=== PATIENT | male | born 1950 | race African-American/Black ===

== ENCOUNTER 2017-03-19 18:09 | Inpatient (IN) ==
[2017-03-19] MEDS ORDERED: ASPIRIN PO STA (18:12)
[2017-03-19 18:38] LABS: MANUAL DIFF NEEDED? NO
--- NOTE | 2017-03-19 18:44 | Diag Imaging Result Doc PS360 ---
CHEST-2 VIEWS - 03/19/2017 INDICATION: CP TECHNIQUE: COMPARISON: 02/04/2014 FINDINGS: Stable CABG changes. Stable cardiomegaly and pulmonary vascular congestion. No infiltrates or edema. No pneumothorax or pleural effusion. IMPRESSION: Cardiomegaly and pulmonary vascular congestion. Electronically signed by Tavo Baum 03/19/2017 6:42 PM
--- NOTE | 2017-03-19 18:48 | EKG Report ---
Test Performed on : 03/19/2017 6:19:52 PM Test Reason : CP Blood Pressure : / mmHG Vent. Rate : 078 BPM Atrial Rate : 078 BPM P-R Int : 280 ms QRS Dur : 112 ms QT Int : 398 ms P-R-T Axes : 087 -11 057 degrees QTc Int : 453 ms Sinus rhythm. with 1st degree AV block. with premature atrial complexes. with aberrant conduction. Minimal voltage criteria for LVH, may be normal variant Nonspecific ST abnormality Abnormal ECG When compared with ECG of 08-MAR-2009 14:22, premature ventricular complexes. are no longer present aberrant conduction. is now present DC interval has increased Unconfirmed Result
[2017-03-19 18:55] LABS: BASO% 0.5 % (0.0-0.8); EOS# 0.42 X1000 (0.0-0.7); EOS% 6.6 % (0.0-10.0); HEMATOCRIT 39.2 % (42.0-52.0); HEMOGLOBIN 13.2 g/dL (14.0-18.0); IMM GRAN# 0.01 X1000 (0.0-0.04); IMM GRAN% 0.2 % (0.0-0.5); LYMPH# 1.46 X1000 (1.2-3.4); MCH 31.9 PG (27-31); MCHC 33.7 g/dL (33-37); MCV 94.7 FL (81-99); MONO# 0.72 X1000 (0.11-0.59); MONO% 11.3 % (1.7-9.3); MPV 11.6 FL (7.4-10.4); NEUT% 58.4 % (42.2-75.2); PLT 146 X1000 (130-400); RBC 4.14 XMIL (4.7-6.1)
[2017-03-19 19:02] LABS: ALBUMIN 4.5 g/dL (3.5-5.0); CALCIUM 9.4 mg/dL (8.8-10.2); POTASSIUM 3.9 mmol/L (3.5-5.1); TOTAL BILIRUBIN 0.8 mg/dL (0.20-1.00); TOTAL PROTEIN 9.2 g/dL (6.3-8.3)
--- NOTE | 2017-03-19 19:24 | EKG Report ---
Test Performed on : 03/19/2017 6:53:24 PM Test Reason : CHEST PAIN Blood Pressure : / mmHG Vent. Rate : 069 BPM Atrial Rate : 051 BPM P-R Int : 000 ms QRS Dur : 116 ms QT Int : 428 ms P-R-T Axes : 000 -13 032 degrees QTc Int : 458 ms Accelerated Junctional rhythm. with frequent premature ventricular complexes. Left ventricular hypertrophy with QRS widening Nonspecific ST and T wave abnormality Abnormal ECG When compared with ECG of 19-MAR-2017 18:19, (Unconfirmed) Junctional rhythm. has replaced Sinus rhythm. Nonspecific T wave abnormality now evident in Inferior leads Unconfirmed Result
[2017-03-19 19:28] LABS: INR 1.1 (0.86-1.15); PROTIME 14.5 Seconds (12.1-15.5)
[2017-03-19 19:29] LABS: PTT PL 32.4 Seconds (22.6-43.9)
--- NOTE | 2017-03-19 21:02 | EKG Report ---
Test Performed on : 03/19/2017 8:59:27 PM Test Reason : CP Blood Pressure : / mmHG Vent. Rate : 061 BPM Atrial Rate : 061 BPM P-R Int : 214 ms QRS Dur : 108 ms QT Int : 428 ms P-R-T Axes : 023 -06 062 degrees QTc Int : 430 ms Sinus rhythm. with 1st degree AV block. Left ventricular hypertrophy with repolarization abnormality Abnormal ECG When compared with ECG of 19-MAR-2017 18:53, (Unconfirmed) Sinus rhythm. has replaced Junctional rhythm. Unconfirmed Result
--- NOTE | 2017-03-19 21:46 | PROVIDER DOCUMENTATION ---
This chart was entered by Franca Izaguirre Scribe, acting as scribe for Amador Ramírez PA. HPI-Chest Pain - General Chief Complaint: Chest Pain Stated Complaint: CHEST PAIN Time Seen by Provider: 03/19/17 19:07 Source: patient Allergies/Adverse Reactions: Patient Allergies Allergy/AdvReac Type Severity Reaction Status Date / Time No Known Allergies Allergy Verified 02/04/14 03:18 Home Medications: Home Medication List Medication Instructions Recorded Confirmed Last Taken Type ATORVAstatin [Lipitor] 40 mg PO DAILY 02/04/14 02/04/14 Unknown History Aspirin 81 mg PO DAILY 02/04/14 02/04/14 Unknown History Carvedilol 25 mg PO BID 02/04/14 02/04/14 Unknown History Clonidine [Catapres] 0.1 mg PO BID 02/04/14 02/04/14 Unknown History Prasugrel [Effient] 10 mg PO DAILY 02/04/14 02/04/14 Unknown History - History of Present Illness-CP Nature of Presenting Problem: Pt is a 67 year old male who came to the ED with a cc of dull chest pain starting last night. Pt reports also when he woke up this morning he still had chest pain. pt denies N/V, dizziness, and fever. Pt has a hx of open heart surgery and stents. Location: reports: central Chest Pain Radiation: reports: no radiation Quality of Pain: reports: dull Severity in ED: mild Onset/Duration: 24 hours ago Timing: still present Context/Activities at Onset: reports: none Modifying Factors: improves with: nothing Associated Symptoms: reports: denies symptoms Nitro Today/Relief: no nitro taken today Aspirin Treatment Today: no aspirin today Prior Chest Pain/Cardiac Workup: reports: heart attack Similar Symptoms Previously?: No Recently Seen Here or By Another Healthcare Provider: No Review of Systems - Adult - REVIEW OF SYSTEMS - ADULT Constitutional: denies: chills, fever Eyes: reports: no symptoms reported Ears, Nose, Mouth & Throat: reports: no symptoms reported Cardiovascular: reports: chest pain. denies: heart murmur, orthopnea Respiratory: denies: cough, shortness of breath Gastrointestinal: denies: diarrhea, nausea, vomiting Genitourinary: reports: no symptoms reported Musculoskeletal: reports: no symptoms reported Integumentary: reports: no symptoms reported Neurological: reports: no symptoms reported Psychiatric: reports: no symptoms reported Endocrine: reports: no symptoms reported Hematologic/Lymphatic: reports: no symptoms reported Allergic/Immunologic: reports: no symptoms reported All Other Systems: Reviewed and Negative Past History - Adult - PAST MEDICAL HISTORY-ADULT Review of Records: reports: Nursing Assessment Review, Medications Reviewed Major Childhood Illnesses: reports: denies history Cardiovascular: reports: CAD, hyperlipidemia, DE Respiratory: reports: COPD Gastrointestinal: reports: denies history Genitourinary: reports: denies history Musculoskeletal: reports: denies history Neurological: reports: denies history Psychiatric: reports: denies history Endocrine/Immune: reports: denies history - PRIOR SURGERIES/PROCEDURES Surgical/Procedure History: reports: cardiac stent, other (CABG) Physical Exam-General - PHYSICAL EXAM-ADULT Initial Vital Signs Reviewed: Yes - CONSTITUTIONAL General Appearance: appears well, alert, mild distress - EYES Eyes: PERRL/EOMI, pink conjunctivae. negative: sclera injected, scleral icterus - HEAD, EARS, NOSE, MOUTH & THROAT HENMT: normocephalic/atraumatic, moist mucous membranes, pharynx normal. negative: angioedema - NECK Neck: full range of motion, supple, normal inspection. negative: carotid bruit , trachial deviation - RESPIRATORY Respiratory: chest non-tender, lungs clear, normal breath sounds, no respiratory distress, no accessory muscle use. negative: crackles, rales, rhonchi, stridor, wheezing - CARDIOVASCULAR Cardiovascular: normal peripheral pulses, regular rate, rhythm, no gallop, no JVD, no murmur - GASTROINTESTINAL (ABDOMEN) Abdominal Exam: non tender, soft. negative: distended, guarding, rigid, rebound , tenderness - MUSCULOSKELETAL Back Exam: no CVA tenderness Extremity: non-tender, no calf tenderness, swelling (mild lower extremity swelling on the left ankle, non pitting edema, no pain or erythema). negative: deformity, erythema, inflammation, joint effusion Peripheral Pulses: radial (R): 2+, radial (L): 2+, dorsalis-pedis (R): 2+, dorsalis-pedis (L): 2+ - SKIN Integumentary: normal color, warm/dry - NEUROLOGIC Neurologic: senior foreman II-XII nml as tested, grossly normal - PSYCHIATRIC Psych/Mental Status: normal mood/affect, normal thought content, normal thought process Progress - PLAN OF CARE/RESULTS Progress/Plan/Lab Results: Laboratory Results - last 24 hr 03/19/17 03/19/17 03/19/17 18:20 18:20 18:20 WBC RBC Hgb Hct MCV MCH MCHC RDW Std Deviation Plt Count MPV Immature Gran % (Auto) Neut % (Auto) Lymph % (Auto) [place] % (Auto) Eos % (Auto) Baso % (Auto) Immature Gran # (Auto) Neut # (Auto) Lymph # (Auto) [place] # (Auto) Eos # (Auto) Baso # (Auto) PT INR APTT (Factor Assay) D-Dimer Sodium 135 L Potassium 3.9 Chloride 99 Carbon Dioxide 25 Anion Gap 11 BUN 16 Creatinine 1.4 H Estimated GFR/1.73 m2 51 BUN/Creatinine Ratio 11 Glucose 179 H Calculated Osmolality 276 Calcium 9.4 Magnesium 2.0 Total Bilirubin 0.80 AST 38 H ALT 29 Alkaline Phosphatase 129 H Creatine Kinase 195 Troponin T < 0.010 [id number] Pept 982 H Total Protein 9.2 H Albumin 4.5 Globulin 5.0 Albumin/Globulin Ratio 1.0 03/19/17 03/19/17 03/19/17 18:20 19:00 21:23 WBC 6.35 RBC 4.14 L Hgb 13.2 L Hct 39.2 L MCV 94.7 MCH 31.9 H MCHC 33.7 RDW Std Deviation 12.2 Plt Count 146 MPV 11.6 H Immature Gran % (Auto) 0.2 Neut % (Auto) 58.4 Lymph % (Auto) 23.0 Berg[place] % (Auto) 11.3 H Eos % (Auto) 6.6 Baso % (Auto) 0.5 Immature Gran # (Auto) 0.01 Neut # (Auto) 3.71 Lymph # (Auto) 1.46 Berg[place] # (Auto) 0.72 H Eos # (Auto) 0.42 Baso # (Auto) 0.03 PT 14.5 INR 1.10 APTT (Factor Assay) 32.4 D-Dimer 0.86 H Sodium Potassium Chloride Carbon Dioxide Anion Gap BUN Creatinine Estimated GFR/1.73 m2 BUN/Creatinine Ratio Glucose Calculated Osmolality Calcium Magnesium Total Bilirubin AST ALT Alkaline Phosphatase Creatine Kinase Troponin T 0.025 D [id number]-Atvyefusfwg Pept Total Protein Albumin Globulin Albumin/Globulin Ratio Orders Category Date Time Status Admit - [facility] Routine AdmDCTranf 03/19/17 22:24 Ordered Cardiac Monitoring DIRECTED Care 03/19/17 18:13 Completed [facility] Loc NOW Care 03/19/17 18:13 Completed CHEST-2 VIEWS [RAD] Stat Exams 03/19/17 18:13 Completed CBC WITH ELECTRONIC DIFF [HEME] Stat Lab 03/19/17 18:20 Completed CK PROFILE [SP CHEM] Stat Lab 03/19/17 18:20 Completed COMPREHENSIVE METABOLIC PANEL [CHEM] Stat Lab 03/19/17 18:20 Completed D-DIMER PL [COAG] Stat Lab 03/19/17 19:00 Completed MAGNESIUM [CHEM] Stat Lab 03/19/17 18:20 Completed PRO B-NATRIURETIC PEPTIDE Stat Lab 03/19/17 18:20 Completed [address]IME WITH INR PL [COAG] Stat Lab 03/19/17 19:[address] [COAG] Stat Lab 03/19/17 19:00 Completed TROPONIN T Stat Lab 03/19/17 18:20 Completed TROPONIN T Stat Lab 03/19/17 21:23 Completed Aspirin Med 03/19/17 18:12 Discontinued 325 mg PO STAT STA EKG [EKG] Stat Ther 03/19/17 18:13 Draft EKG [EKG] Stat Ther 03/19/17 18:45 Draft EKG [EKG] Stat Ther 03/19/17 20:52 Draft Transfer/Admit Order [TRANSFER] Routine Transfer 03/19/17 22:24 Completed Result Diagrams: 03/20/17 06:53 03/20/17 06:53 - REASSESSMENT Reassessment #1 Time Reassessed: 20:53 (Discussed with Dr. Eid, recommends admission for DE r/o and VQ scan in the am. ) Reassessment #2 Time Reassessed: 00:45 (No telemetry beds available at [facility]. Discussed admission at for pt for DE r/o and V/Q scan in the am. Dr. Stout accepting. ) - EKG 1 Time of EKG reading by physician:: 20:59 EKG Read and Signed by:: Venu Eid EKG Interpretation (*Must complete 3 of following elements*): Abnormal Rate: 61 Rhythm: sinus rhythm w 1st degree AV block - CONSULTS/PCP/HOSPITALIST Notification #1 *Consult/PCP/Hospitalist*: Dr. Trejo, Hospitalist Time Discussed: 21:45 (Discussed admission for DE r/o and V/Q scan in the am due to elevated D dimer and creatinine of 1.4. Per christelle Lopez for admit. ) Consult Disposition: Admit #2 Consult: Dr. Stout Hospitalist at Time Discussed: 00:46 (Admit to , no telemetry beds here at [facility]) Consult Disposition: Admit Departure - Departure Date of Disposition Decision: 03/19/17 Time of Disposition Decision: 21:45 DIAGNOSIS: Elevated d-dimer, History of DE (myocardial infarction) Chest pain Qualifiers: Chest pain type: unspecified Qualified Code(s): R07.9 - Chest pain, unspecified Disposition: ADMITTED INPATIENT 09 Certified Medical Emergency: Emergent Condition: Stable - Critical Care Note This patient required my direct & personal management of CC.: No Attestation - Physician/ ALBER Attestation Patient care was provided by Advanced Practice Provider:: Yes Advanced Practice Provider:: Amador Ramírez Advanced Practice Provider documentation review:: The Mid-level provider documentation, treatment plan and medical decision making was reviewed by the physician who agrees with all treatment and medical decision making by the MLP. This chart was documented by the indicated scribe, (Franca Izaguirre Scribe) and accurately reflects the services I performed and decisions made by me, Amador Ramírez PA, as attested by the provider's signature.
[2017-03-20 07:08] LABS: HEMATOCRIT 37.5 % (42.0-52.0); HEMOGLOBIN 12.8 g/dL (14.0-18.0); MCH 31.9 PG (27-31); MCHC 34.1 g/dL (33-37); MCV 93.5 FL (81-99); MPV 11.3 FL (7.4-10.4); RBC 4.01 XMIL (4.7-6.1)
[2017-03-20 07:31] LABS: AGAP 12; ALBUMIN 4.1 g/dL (3.5-5.0); ALKALINE PHOSPHATASE 119 U/L (32-122); BUN 12 mg/dL (8-22); CALCIUM 9.6 mg/dL (8.8-10.2); CHLORIDE 101 mmol/L (98-107); COSMO 278; GOT 38 U/L (10-34); GPT 37 U/L (10-44); MAGNESIUM 1.9 mg/dL (1.5-2.7); POTASSIUM 3.4 mmol/L (3.5-5.1); SODIUM 138 mmol/L (136-145); TCO2 25 mmol/L (25-35); TOTAL PROTEIN 8.4 g/dL (6.3-8.3)
[2017-03-20] MEDS ORDERED: APRESOLINE IV ONE (11:44)
[2017-03-20] MEDS: ASPIRIN PO SCH (13:19)
[2017-03-20] MEDS: APRESOLINE PO SCH ×2 (13:19→21:06)
[2017-03-20] MEDS: NORVASC PO SCH (13:19)
--- NOTE | 2017-03-20 13:31 | Extremity Venous Study ---
EXAM: Venous U/S Bilateral Legs HISTORY: d dimer TECHNIQUE: Compression venous ultrasound of the lower extremities with color Doppler COMMENT: The deep veins of the lower extremity are compressible and there is normal color Doppler flow with augmentation. No abnormal fluid collections are demonstrated. There is no evidence of superficial venous thrombosis. IMPRESSION: Normal study. Electronically signed by Chintan Jacques 03/20/2017 1:29 PM
--- NOTE | 2017-03-20 13:50 | EKG Report ---
Test Performed on : 03/20/2017 12:19:11 PM Test Reason : elevated troponin Blood Pressure : / mmHG Vent. Rate : 059 BPM Atrial Rate : 059 BPM P-R Int : 280 ms QRS Dur : 110 ms QT Int : 474 ms P-R-T Axes : 000 -18 050 degrees QTc Int : 469 ms Sinus bradycardia. with 1st degree AV block. with frequent premature ventricular complexes. and ivan ature atrial complexes. Minimal voltage criteria for LVH, may be normal variant Nonspecific ST abnormality Abnormal ECG When compared with ECG of 19-MAR-2017 20:59, (Unconfirmed) premature ventricular complexes. are now present premature atrial complexes. are now present Confirmed by Juventino dAam MD ([id number]) on 03/27/2017 10:26:48 PM
--- NOTE | 2017-03-20 15:34 | HISTORY AND PHYSICAL ---
CHIEF COMPLAINT: Chest pain. HISTORY OF PRESENT ILLNESS: This is a 67-year-old male who presented to the emergency room complaining of dull chest wall pain that began through the night. He rates it as a 2 to 3/10. He has identified no exacerbating or relieving factors. He does have a history of coronary artery bypass graft and subsequent PCI, but this is not consistent with the pain he felt with these episodes in the past. He is noted to have troponins of less than 0.010, 0.025 and at 7 o'clock this morning, a troponin of 0.128. In the emergency room, his EKGs revealed sinus rhythm with a first-degree block with a rate of 68. PAST MEDICAL HISTORY: 1. Coronary artery disease, status post coronary artery bypass graft. 2. Hypertension. 3. Chronic kidney disease. 4. Hyperlipidemia. PAST SURGICAL HISTORY: Cardiac bypass grafts. SOCIAL HISTORY: He denies alcohol, tobacco, or illicit drug use. ALLERGIES: No known drug allergies. HOME MEDICATIONS: A list will be obtained. REVIEW OF SYSTEMS: A 14 point review of systems is discussed with patient with pertinent positives stated in the HPI. He denies syncope, dizziness, palpitations, nausea, vomiting, diarrhea, constipation, black or bloody vomitus, black or bloody stools, any shortness of breath, cough, PND, orthopnea. PHYSICAL EXAMINATION: GENERAL: This is a 67-year-old male who is sitting in the bed, in no distress. VITAL SIGNS: Blood pressure is 131/67 with a heart rate of 52, respirations are 18, temperature is 98.1 degrees oral with room air saturations 100%. HEENT: Head is normocephalic, atraumatic. Pupils equal, round, react to light. EOMs are intact. Sclerae are nonicteric. Mucous membranes are moist. NECK: Supple with trachea midline. CARDIOVASCULAR: Regular rate and rhythm. S1 and S2 appreciated. PULMONARY: Breath sounds are clear with no increased work of breathing noted. GASTROINTESTINAL: Abdomen is soft, nontender, nondistended with bowel sounds in all 4 quadrants. BACK: No CVAT. No spine tenderness. MUSCULOSKELETAL: Good range of motion to joints. NEUROLOGIC: He is alert and oriented x3 with cranial nerves 2-12 grossly intact. EXTREMITIES: No clubbing, cyanosis, or edema. Calves are nontender. Pulses are palpable x4. DIAGNOSTICS: WBC is 7.4 with a hemoglobin 12.8, hematocrit 37.5, platelets of 159,000. D-dimer is 0.86, sodium is 135 potassium 3.9, BUN 16, creatinine 1.4 with a glucose of 179. Troponin less than 0.010, 0.025, 0.128. Chest x-ray revealed cardiomegaly and pulmonary vascular congestion. No infiltrates or edema, no pneumothorax or pleural effusion. ASSESSMENT: 1. Chest pain. 2. Hypertension. 3. Elevated troponin. 4. History of coronary artery disease, status post coronary artery bypass graft. 5. History of chronic kidney disease. It looks like with a baseline creatinine of 1.4-1.5. PLAN: He will be admitted to the hospital, placed on telemetry. We will repeat a troponin. Cardiology has been consulted. Due to his renal status, we will obtain a VQ lung scan as well as a bilateral lower extremity Doppler due to his elevated D-dimer. We will identify his home medications and continue as appropriate. Further treatments pending hospital course. Dictated by JASON Ayala for Kamari Trejo MD cc: JASON Ayala MD
--- NOTE | 2017-03-20 16:30 | Diag Imaging Result Doc PS360 ---
EXAM: LUNG SCAN / VQ - 03/20/2017 HISTORY: CP, elevated ddimer TECHNIQUE: Ventilation images performed using 35.7 mCi technetium 99m DTPA aerosol inhaled. Perfusion images performed using 5.9 mCi technetium 99m MAA administered intravenously. Ventilation perfusion images are obtained in multiple projections over the lungs. COMPARISON: None. FINDINGS: The ventilation images are mildly heterogeneous. The perfusion images are relatively homogeneous. There is no segmental perfusion defect identified. There is no ventilation/perfusion mismatch (area which is ventilated but not perfused) identified. IMPRESSION: Low probability for pulmonary embolism. Electronically signed by Golden Unger 03/20/2017 4:27 PM
[2017-03-20] MEDS ORDERED: COREG PO SCH (21:00)
[2017-03-20] MEDS: LIPITOR PO SCH (21:06)
[2017-03-20] MEDS: CATAPRES PO SCH (21:06)
--- NOTE | 2017-03-20 21:38 | CONSULTATION ---
DATE OF CONSULTATION: 03/20/2017 IMPRESSION: 1. Episode of chest discomfort burning in character last approximately 30 minutes. Consider myocardial ischemia although symptoms are not like what he experienced before with his previous heart attack. Consider also possible gastroesophageal reflux. Serial cardiac enzymes benign. 2. Atherosclerotic coronary disease with history of previous coronary bypass grafting. 3. Hypertension. 4. Chronic kidney disease. 5. Hyperlipidemia. RECOMMENDATIONS: 1. Agree with plan to pursue stress myocardial perfusion study. If study is positive will consider for coronary angiography. 2. If study negative would continue medical management of coronary disease and also treat for possible upper GI source of symptoms such as gastroesophageal reflux. HISTORY: This 67-year-old male with past history of previous coronary bypass grafting more than 10 years ago, hypertension, hyperlipidemia and chronic kidney disease was admitted to emergency room yesterday morning after an episode of chest discomfort. He relates that when he awoke he was feeling burning discomfort in the left chest wall region. There was no other associated symptoms. Discomfort lasted approximately 30 minutes. He took an aspirin and discomfort seemed to fade away. He has not had recurrence. Discomfort is not like what he experienced with his previous myocardial infarction. The chest discomfort associated with his myocardial infarction was characterized as a chest tightness with left arm radiation. He has not had any recurrence of such discomfort. He is admittedly not very active. He does have some mild exertional shortness of breath which is chronic. There has been no orthopnea. He is not aware of any problems with gastroesophageal reflux. PAST MEDICAL HISTORY: 1. Atherosclerotic coronary disease and previous coronary bypass grafting. 2. Hypertension. 3. Chronic kidney disease. 4. Hyperlipidemia. PAST SURGICAL HISTORY: Includes coronary bypass grafting. ALLERGIES: No known drug allergies. MEDICATIONS: As listed. SOCIAL HISTORY: He does not smoke. He does use smokeless tobacco. He does not use alcohol. FAMILY HISTORY: Positive for coronary disease. REVIEW OF SYSTEMS: Pulmonary: Negative beyond history of present illness. Gastrointestinal: Negative beyond history of present illness. Constitutional: Negative beyond history of present illness. Remainder of review of systems negative beyond history present illness with 14 total systems reviewed. PHYSICAL EXAM: General: This is an overweight older -[place] male in no distress. Vital signs: Blood pressure 131/67, heart rate 52 and regular. HEENT: Extraocular movements appear intact. Mucous membranes are moist. Neck: Supple without jugular venous distention. There are no carotid bruits. Chest: Clear to auscultation. Cardiac Exam: Reveals a regular rate and rhythm without appreciable murmur or gallop. Abdomen: Soft, nontender. Bowel sounds are normal. Extremities: Without edema. Neurologic Exam: Reveals him to be alert, fully oriented. Speech is fluent. Moves all 4 extremities equally well. Skin: Warm and dry. Psychiatric: Reveals mood to be appropriate. DIAGNOSTIC DATA: ECG demonstrates sinus rhythm with 1st degree AV block and moderate ventricular ectopy. Voltage criteria for left hypertrophy demonstrated. Nonspecific ST abnormality demonstrated. LABORATORY DATA: Remarkable for a initial troponin T less than 0.01. Followup troponin T 0.025. Third troponin T 0.094. CPK values consistently normal. cc: Jairon Quijano MD
--- NOTE | 2017-03-21 00:55 | EKG Report ---
Test Performed on : 03/21/2017 00:48:53 AM Test Reason : Abnormal telemetry reading - 10 beat run / V-tach Blood Pressure : / mmHG Vent. Rate : 055 BPM Atrial Rate : 055 BPM P-R Int : 254 ms QRS Dur : 122 ms QT Int : 478 ms P-R-T Axes : 016 -28 067 degrees QTc Int : 457 ms Sinus bradycardia. with 1st degree AV block. Left ventricular hypertrophy with QRS widening Abnormal ECG When compared with ECG of 20-MAR-2017 12:19, (Unconfirmed) premature ventricular complexes. are no longer present premature atrial complexes. are no longer present Confirmed by Juventino Adam MD ([id number]) on 03/27/2017 10:27:03 PM
[2017-03-21] MEDS: APRESOLINE PO SCH ×3 (05:47→22:28)
[2017-03-21 07:14] LABS: HEMATOCRIT 38.4 % (42.0-52.0); MCH 31.6 PG (27-31); MCHC 33.9 g/dL (33-37); MCV 93.2 FL (81-99); MPV 11.2 FL (7.4-10.4); RBC 4.12 XMIL (4.7-6.1)
[2017-03-21 07:42] LABS: AGAP 10; ALBUMIN 4.1 g/dL (3.5-5.0); ALKALINE PHOSPHATASE 115 U/L (32-122); BUN 15 mg/dL (8-22); CALCIUM 9.3 mg/dL (8.8-10.2); CHLORIDE 101 mmol/L (98-107); COSMO 274; GOT 36 U/L (10-34); GPT 30 U/L (10-44); MAGNESIUM 1.9 mg/dL (1.5-2.7); POTASSIUM 3.3 mmol/L (3.5-5.1); SODIUM 135 mmol/L (136-145); TCO2 24 mmol/L (25-35); TOTAL PROTEIN 8.4 g/dL (6.3-8.3)
[2017-03-21] MEDS: NORVASC PO SCH ×2 (08:22→09:06)
[2017-03-21] MEDS: CATAPRES PO SCH ×3 (08:22→20:54)
[2017-03-21] MEDS: ASPIRIN PO SCH ×2 (08:22→12:01)
[2017-03-21 08:33] LABS: CK-MB 5.03 ng/mL (0.0-5.0)
--- NOTE | 2017-03-21 12:04 | PROGRESS NOTE ---
DATE: 03/21/2017 SUBJECTIVE: Patient without any new complaints. States that his chest wall pain has resolved. He is feeling better. OBJECTIVE: Vital Signs: Pulse 98 degrees, pulse 61, respiratory rate 18, blood pressure 147/79, saturation 100% on room air. General: Patient is awake and alert, sitting on the side of the bed. He is in no respiratory distress. Pleasant to talk with. Neck: Supple. Cardiovascular: Regular rate. Chest: Clear. Abdomen: Soft. Positive bowel sounds. Extremities: Moves all extremities. Positive trace edema, bilateral lower extremities. Neurologic: No focal changes. Skin: Warm and dry. No rashes. LABORATORY: Troponin is actually trending down. His troponin had gone from 0.25 up to 0.128. It currently has trended back down to 0.091. ASSESSMENT: 1. Hypokalemia. Will replace. 2. Known coronary artery disease. 3. Elevated D-dimer. The patient's V/Q scan was negative. Ultrasound of his lower extremities was also negative. PLAN: We will continue to follow patient's hypertension. Given his known history of coronary artery disease and his elevated troponin, cardiology feels as though he needs to have a nuclear scan prior to discharge. This certainly is reasonable. Unfortunately, he had a V/Q scan yesterday evening, which prevents an adequate nuclear scan. Therefore, he will need to remain in the hospital overnight and hopefully can have a nuclear scan in the a.m. and, if normal, will be able to discharge home. We will continue cardiac diet today and place him n.p.o. after midnight. cc: Kamari Trejo MD
[2017-03-21] MEDS: LIPITOR PO SCH (20:54)
[2017-03-22] MEDS: APRESOLINE PO SCH ×2 (06:20→13:08)
--- NOTE | 2017-03-22 08:39 | EKG Report ---
Test Performed on : 03/22/2017 08:16:32 AM Test Reason : cp, ELEVATED TROPONIN Blood Pressure : / mmHG Vent. Rate : 061 BPM Atrial Rate : 061 BPM P-R Int : 238 ms QRS Dur : 116 ms QT Int : 458 ms P-R-T Axes : 069 -12 054 degrees QTc Int : 461 ms Sinus rhythm. with 1st degree AV block. Incomplete left bundle branch block Borderline ECG When compared with ECG of 21-MAR-2017 00:48, (Unconfirmed) No significant change was found Confirmed by Juventino Adam MD ([id number]) on 03/27/2017 10:29:56 PM
[2017-03-22] MEDS: NORVASC PO SCH (11:37)
[2017-03-22] MEDS: ASPIRIN PO SCH ×2 (11:37)
[2017-03-22] MEDS: CATAPRES PO SCH (11:38)
--- NOTE | 2017-03-22 15:46 | Diag Imaging Result Document ---
PROCEDURE NAME: MYOCARDIAL PERF SCAN, STR/REST - 03/22/2017 Please see detailed stress report by Dr. Adam. Patient exercised on Jerome protocol. Had a modified Jerome protocol. Following stress test, Cardiolite was injected. 15.6 mCi of Cardiolite was injected for the rest phase; 45 mCi of Cardiolite was injected for the stress phase. Gated SPECT images were obtained in standard views. Images revealed mild left ventricular dilatation. There was severe grade large size fixed defect in the inferior wall diagnostic of infarct or scar. In addition, there was fixed defect in the inferolateral wall diagnostic of infarct or scar. There was fixed defect in the inferoapical portion. Left ventricular ejection fraction 34%. There is inferior wall akinesis. There is no evidence of ischemia. CONCLUSIONS: 1. No evidence of ischemia. 2. Left ventricle was dilated. There was large size, severe grade, fixed defect in the inferior wall, inferolateral and inferoapical wall diagnostic of infarct or scar. 3. Left ventricular ejection fraction 34%. There was inferior wall hypokinesis. cc: MD Monique Parra CRNP
[2017-03-23] MEDS ORDERED: IMDUR PO SCH (09:00)
[2017-03-23 09:18] VITALS: BP 157/78
--- NOTE | 2017-03-23 13:06 | DISCHARGE SUMMARY ---
ADMISSION DATE: 03/20/2017 DISCHARGE DATE: 03/22/2017 DIAGNOSES: 1. Known coronary artery disease. 2. Elevated D-dimer with a negative V/Q scan and lower extremity Doppler negative. 3. Hypokalemia. Resolved. CONSULTS: Dr. Jairon Quijano, Cardiology. DIAGNOSTICS: 1. 03/20/2017 V/Q lung scan revealed low probability of pulmonary embolus. 2. Bilateral lower extremity Doppler revealed negative for deep venous thrombosis. 3. Myocardial perfusion scan showed no evidence of ischemia. Left ventricle was dilated. There was a large-sized, severe grade, fixed defect in the inferior wall, inferolateral, and inferior apical wall, diagnostic of an infarct or scar. Left ventricle ejection fraction was 34% with inferior wall hypokinesis. HOSPITAL COURSE: Mr. Prabhakar presented to the emergency room having chest pain that was a burning- type pain that lasted about 30 minutes. This was not consistent with his prior cardiac pain. Serial cardiac enzymes were elevated. He was evaluated by Cardiology and a myocardial perfusion scan was performed, which revealed an old defect. He has had no further chest pain. During the hospitalization, we did trend his electrolytes and replete as appropriate. We did continue his home medications. PHYSICAL EXAMINATION: Cardiovascular: Regular rate and rhythm. S1 and S2 appreciated. Pulmonary: Breath sounds are clear, with no increased work of breathing noted. Gastrointestinal: Abdomen is soft, nontender, nondistended, with bowel sounds in all 4 quadrants. Extremities: No clubbing, cyanosis, or edema. Calves nontender. Pulses are palpable x4. Neurologic: He is alert and oriented x3. DISCHARGE MEDICATIONS: Imdur 60 mg daily. Norvasc 10 mg daily. Hydralazine 50 mg t.i.d. Carvedilol 25 mg b.i.d. Aspirin 81 mg at 8 and 12. Lipitor 40 mg at bedtime. Clonidine 0.1 b.i.d. FOLLOWUP: 1. He is to follow up with his primary care provider in 1-2 weeks or sooner if needed. 2. Follow up with Dr. 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 DISPOSITION: He is being discharged home in stable condition with family members. TIME SPENT: This is a greater than 30-minute discharge. Dictated by JASON Ayala for Kamari Trejo MD cc: JASON Ayala MD
== END 2017-03-22 19:40 | disposition home or self-care (01) ==
LOC: P.ED 18:09 → SUATTDRO 03-20 02:18 → P.MEDSURG 03-20 02:18
PROVIDERS: ATTEND Family Medicine

== ENCOUNTER 2018-09-03 22:57 | Inpatient (IN) ==
--- NOTE | 2018-09-04 00:09 | Diag Imaging Result Doc PS360 ---
EXAM: CHEST-2 VIEWS HISTORY: cough TECHNIQUE: Chest two COMPARISON: 08/27/2018 FINDINGS: The lungs are well expanded. The heart is mildly enlarged. Sternal wires present. It The vessels are not distended. There are no infiltrates. No pleural effusions. IMPRESSION: 1.Cardiomegaly 2.No pneumonia Electronically signed by Angel Encarnacion 09/04/2018 12:07 AM
[2018-09-04 00:22] LABS: ALBUMIN 3.7 g/dL (3.5-5.0); CREATININE 2.2 mg/dL (0.7-1.2); POTASSIUM 3.4 mmol/L (3.5-5.1); TOTAL BILIRUBIN 1.5 mg/dL (0.20-1.00); TOTAL PROTEIN 7.7 g/dL (6.3-8.3)
[2018-09-04 00:27] LABS: BASO# 0.03 X1000 (0.0-0.2); BASO% 0.5 % (0.0-0.8); EOS# 0.29 X1000 (0.0-0.7); EOS% 4.8 % (0.0-10.0); HEMATOCRIT 31.7 % (42.0-52.0); LYMPH# 0.83 X1000 (1.2-3.4); LYMPH% 13.6 % (20.5-51.1); MCH 31.9 PG (27-31); MCHC 31.5 g/dL (33-37); MCV 101.3 FL (81-99); MONO# 0.61 X1000 (0.11-0.59); MPV 11.1 FL (7.4-10.4); NEUT# 4.34 X1000 (1.4-6.5); NEUT% 71.1 % (42.2-75.2); PLT 92 X1000 (130-400); RBC 3.13 XMIL (4.7-6.1)
[2018-09-04 01:04] LABS: BILIRUBIN URINE NEGATIVE (NEGATIVE); BLOOD URINE NEGATIVE (NEGATIVE); CLARITY CLEAR (CLEAR); COLOR YELLOW; GLUCOSE URINE NEGATIVE (NEGATIVE); KETONE URINE NEGATIVE (NEGATIVE); LEUKOCYTES URINE TRACE (NEGATIVE); NITRITE URINE NEGATIVE (NEGATIVE); PH URINE 6.5; PROTEIN URINE 2+(100 mg/dL) mg/dL (NEGATIVE); UROBILINOGEN URINE NORMAL
[2018-09-04 01:11] LABS: URINE BACTERIA 1+ /HFP; URINE EPITHELIAL CELLS <10 /HPF (<10); URINE RBC <10 /HPF (<10); URINE SOURCE CLEAN CATCH; URINE WBC <10 /HPF (<10)
--- NOTE | 2018-09-04 01:39 | PROVIDER DOCUMENTATION ---
This chart was entered by Homer Potter Scribe, acting as scribe for Lu Najera MD. HPI-Respiratory General - General Chief Complaint: Shortness of Breath Stated Complaint: SOB Time Seen by Provider: 09/03/18 23:06 Source: patient, family Allergies/Adverse Reactions: Patient Allergies Allergy/AdvReac Type Severity Reaction Status Date / Time No Known Allergies Allergy Verified 01/13/18 10:42 Home Medications: Home Medication List Medication Instructions Recorded Confirmed Last Taken Type Aspirin 81 mg PO DAILY 02/04/14 08/27/18 03/19/17 12:00 History Carvedilol 25 mg PO BID 02/04/14 08/27/18 03/19/17 08:00 History Clonidine [Catapres] 0.1 mg PO HS 02/04/14 08/27/18 03/19/17 08:00 History Hydralazine [Apresoline] 50 mg PO TID 03/20/17 08/27/18 03/19/17 17:00 History Lisinopril 20 mg PO DAILY 10/29/17 08/27/18 Unknown History Acetaminophen [Tylenol] 650 mg PO Q4H PRN PRN #30 tab 11/01/17 08/27/18 Unknown Rx ATORVAstatin [Lipitor] 1 tab PO HS 07/03/18 08/27/18 Unknown History Bumetanide 1 tab PO BID 07/03/18 08/27/18 Unknown History Isosorbide Mononitrate E.r. [Imdur] 1 tab PO DAILY 07/03/18 08/27/18 Unknown History Potassium Chloride 1 tab PO DAILY 07/03/18 08/27/18 Unknown History ROSUVAstatin [Crestor] 1 tab PO HS 07/03/18 08/27/18 Unknown History - History of Present Illness-Resp Nature of Presenting Problem: 68 yom presents to ed with cc of sob x 2 days. reports hasn't been able to sleep at night due to feeling winded. Denies any pain. Quality of Pain: reports: none Severity in ED: reports: mild Onset/Duration: reports: 2 days ago Timing: reports: still present Review of Systems - Adult - REVIEW OF SYSTEMS - ADULT Constitutional: denies: chills, fever, fatique Eyes: reports: no symptoms reported Ears, Nose, Mouth & Throat: denies: ear pain, sinus problem, throat pain Cardiovascular: denies: chest pain, irregular heart rate, orthopnea, syncope Respiratory: reports: shortness of breath. denies: cough, pleurisy, wheezing Gastrointestinal: denies: abdominal pain, diarrhea, nausea, vomiting Genitourinary: denies: dysuria, flank pain, urgency Musculoskeletal: denies: frequent leg cramps, joint pain, joint swelling, neck pain Integumentary: reports: no symptoms reported Neurological: reports: no symptoms reported Psychiatric: reports: no symptoms reported Endocrine: reports: no symptoms reported Hematologic/Lymphatic: reports: no symptoms reported Allergic/Immunologic: reports: no symptoms reported All Other Systems: Reviewed and Negative Past History - Adult - PAST MEDICAL HISTORY-ADULT Review of Records: reports: Nursing Assessment Review, Medications Reviewed Major Childhood Illnesses: reports: denies history Cardiovascular: reports: CAD, hyperlipidemia, [place] Respiratory: reports: COPD Gastrointestinal: reports: denies history Obstetrical/Gynecological: reports: denies history Genitourinary: reports: denies history Musculoskeletal: reports: denies history Neurological: reports: denies history Psychiatric: reports: denies history Endocrine/Immune: reports: denies history Other Conditions: reports: denies history - PRIOR SURGERIES/PROCEDURES Surgical/Procedure History: reports: cardiac stent, other (CABG) - IMMUNIZATION STATUS Childhood Immunizations: See Nurse Assessment Flu Vaccine: See Nurse Assessment - FAMILY HISTORY Family History: reviewed, not pertinent - SOCIAL HISTORY Smoking: denies, other (former) Substance Use: none/never Physical Exam-General - PHYSICAL EXAM-ADULT Initial Vital Signs Reviewed: Yes - CONSTITUTIONAL General Appearance: appears well, alert, no apparent distress - EYES Eyes: PERRL/EOMI, pink conjunctivae - HEAD, EARS, NOSE, MOUTH & THROAT HENMT: normocephalic/atraumatic, moist mucous membranes, normal ENT inspection, TMs normal, pharynx normal - NECK Neck: non-tender, full range of motion, supple, normal inspection - RESPIRATORY Respiratory: chest non-tender, lungs clear, normal breath sounds, no pleuratic chest pain, no respiratory distress, no accessory muscle use - CARDIOVASCULAR Cardiovascular: regular rate, rhythm - GASTROINTESTINAL (ABDOMEN) Abdominal Exam: soft, no organomegaly, tenderness (generalized tenderness upon palpation but pt denies having the pain.) - MUSCULOSKELETAL Back Exam: normal inspection, no CVA tenderness, no vertebral tenderness Extremity: normal range of motion, non-tender, normal gait, pedal edema ( bilateral) - SKIN Integumentary: normal color, normal turgor, warm/dry - NEUROLOGIC Neurologic: teradata architect II-XII nml as tested, grossly normal, no motor/sensory deficits - PSYCHIATRIC Psych/Mental Status: normal mood/affect, normal thought content, normal thought process, oriented x 3 Progress - PLAN OF CARE/RESULTS Progress/Plan/Lab Results: Vital Signs - 8 hr 09/03/18 23:00 09/04/18 00:46 Temperature 97.0 F L 98.8 F Pulse Rate 68 Respiratory Rate 18 Blood Pressure 174/106 O2 Sat by Pulse Oximetry 99 Laboratory Results - last 24 hr 09/03/18 09/03/18 09/03/18 23:45 23:45 23:45 WBC 6.10 RBC 3.13 L Hgb 10.0 L Hct 31.7 L MCV 101.3 H MCH 31.9 H MCHC 31.5 L RDW Std Deviation 13.0 Plt Count 92 L MPV 11.1 H Immature Gran % (Auto) 0.0 Neut % (Auto) 71.1 Lymph % (Auto) 13.6 L [place] % (Auto) 10.0 H Eos % (Auto) 4.8 Baso % (Auto) 0.5 Immature Gran # (Auto) 0.00 Neut # (Auto) 4.34 Lymph # (Auto) 0.83 L [place] # (Auto) 0.61 H Eos # (Auto) 0.29 Baso # (Auto) 0.03 Sodium 140 Potassium 3.4 L Chloride 100 Carbon Dioxide 28 Anion Gap 13 BUN 21 Creatinine 2.2 H Estimated GFR/1.73 m2 30 BUN/Creatinine Ratio 10 Glucose 147 H Calculated Osmolality 285 Calcium 9.0 Total Bilirubin 1.50 H AST 28 ALT 22 Alkaline Phosphatase 101 [id number]-[id number] Pept 9766 H Total Protein 7.7 Albumin 3.7 Globulin 4.0 Albumin/Globulin Ratio 1.0 Amylase 47 Plasma Lactate Urine Source Urine Color Urine Clarity Urine Turbidity Urine pH Ur Specific [place] Urine Protein Ur Glucose (Stick) Urine Ketones Ur Ketones (Stick) Urine Blood Urine Nitrite Urine Bilirubin Urine Urobilinogen Urobilinogen Dipstick Urine Leukocytes Urine WBC (Auto) Urine RBC (Auto) U Epithel Cells (Auto) Urine Bacteria (Auto) Urine Microscopic RBC Urine WBC Urine Microscopic WBC Ur Epithelial Cells Urine Bacteria Urine Glucose 09/03/18 09/04/18 09/04/18 23:45 00:25 00:25 WBC RBC Hgb Hct MCV MCH MCHC RDW Std Deviation Plt Count MPV Immature Gran % (Auto) Neut % (Auto) Lymph % (Auto) [place] % (Auto) Eos % (Auto) Baso % (Auto) Immature Gran # (Auto) Neut # (Auto) Lymph # (Auto) [place] # (Auto) Eos # (Auto) Baso # (Auto) Sodium Potassium Chloride Carbon Dioxide Anion Gap BUN Creatinine Estimated GFR/1.73 m2 BUN/Creatinine Ratio Glucose Calculated Osmolality Calcium Total Bilirubin AST ALT Alkaline Phosphatase [id number]-N-[id number] Pept Total Protein Albumin Globulin Albumin/Globulin Ratio Amylase Plasma Lactate 1.0 Urine Source Cancelled CLEAN CATCH Urine Color Cancelled YELLOW Urine Clarity CLEAR Urine Turbidity Cancelled Urine pH Cancelled 6.5 Ur Specific [place] Cancelled 1.010 Urine Protein Cancelled 2+(100 mg/dL) A Ur Glucose (Stick) Cancelled Urine Ketones NEGATIVE Ur Ketones (Stick) Cancelled Urine Blood Cancelled NEGATIVE Urine Nitrite Cancelled NEGATIVE Urine Bilirubin Cancelled NEGATIVE Urine Urobilinogen NORMAL Urobilinogen Dipstick Cancelled Urine Leukocytes Cancelled Urine WBC (Auto) Cancelled Urine RBC (Auto) Cancelled U Epithel Cells (Auto) Cancelled Urine Bacteria (Auto) Cancelled Urine Microscopic RBC <10 Urine WBC TRACE A Urine Microscopic WBC <10 Ur Epithelial Cells <10 Urine Bacteria 1+ Urine Glucose NEGATIVE Orders Category Date Time Status Saline Loc NOW Care 09/03/18 23:17 Active CHEST-2 VIEWS [RAD] Stat Exams 09/03/18 23:17 Completed AMYLASE [CHEM] Stat Lab 09/03/18 23:45 Completed CBC WITH DIFF [HEME] Stat Lab 09/03/18 23:45 Completed COMPREHENSIVE METABOLIC PANEL [CHEM] Stat Lab 09/03/18 23:45 Completed LACTATE, PLASMA [CHEM] Stat Lab 09/03/18 23:45 Completed PRO B-NATRIURETIC PEPTIDE Stat Lab 09/03/18 23:45 Completed UA NIMS W/REFLEX CULT PL [URINALYSIS] Stat Lab 09/04/18 00:25 Completed URINE CULTURE [RM] Routine Lab 09/04/18 01:12 Ordered Pulse Oximetry Stat Oth 09/03/18 23:17 Active EKG [EKG] Stat Ther 09/04/18 00:53 Ordered Result Diagrams: 09/03/18 23:45 09/03/18 23:45 - EKG 1 Time of EKG reading by physician:: 23:04 EKG Read and Signed by:: Lu Najera EKG Interpretation (*Must complete 3 of following elements*): Abnormal Rate: 69 Rhythm: sinus with pac QRS: normal AK Interval: normal ST Wave: non-specific ST changes - XRAY 1 XRAY: Bilateral XRAY Study: Chest Impression: Abnormal (IMPRESSION: 1.Cardiomegaly 2.No pneumonia Electronically signed by Angel Encarnacion 09/04/2018 12:07 AM) - CONSULTS/PCP/HOSPITALIST Notification #1 *Consult/PCP/Hospitalist*: Dr. Trejo Time Discussed: 01:39 Consult Disposition: Admit Departure - Departure Date of Disposition Decision: 09/04/18 Time of Disposition Decision: 01:39 DIAGNOSIS: CHF (congestive heart failure) Disposition: ADMITTED INPATIENT 09 Certified Medical Emergency: Emergent Condition: Stable Referrals and Follow-Ups: Ignacio Browning Jr, MD [Primary Care Provider] - - Critical Care Note This patient required my direct & personal management of CC.: No Attestation - Physician/ ALBER Attestation Patient care was provided by Advanced Practice Provider:: No The physician spent face to face time with patient:: Yes Advanced Practice Provider documentation review:: Supervising physician onsite and consulted in the evaluation and care of this patient. The physician did have a face to face encounter with the patient. This chart was documented by the indicated scribe, (Homer Potter Scribe) and accurately reflects the services I performed and decisions made by me, Lu Najera MD, as attested by the provider's signature.
[2018-09-04] MEDS ORDERED: LASIX IV ONE (01:49)
--- NOTE | 2018-09-04 02:55 | EKG Report ---
Test Performed on : 09/03/2018 11:04:30 PM Test Reason : SOB Blood Pressure : / mmHG Vent. Rate : 069 BPM Atrial Rate : 069 BPM P-R Int : 154 ms QRS Dur : 116 ms QT Int : 442 ms P-R-T Axes : 013 -16 029 degrees QTc Int : 473 ms Sinus rhythm. with premature atrial complexes. Nonspecific ST and T wave abnormality Prolonged QT Abnormal ECG When compared with ECG of 02-JUL-2018 22:43, (Unconfirmed) premature ventricular complexes. are no longer present premature atrial complexes. are now present Unconfirmed Result
[2018-09-04] MEDS ORDERED: TYLENOL PO PRN (11:45)
[2018-09-04] MEDS: IMDUR PO SCH (12:30)
[2018-09-04] MEDS: COREG PO SCH ×2 (12:30→22:29)
[2018-09-04] MEDS: ASPIRIN PO SCH (12:30)
[2018-09-04] MEDS: APRESOLINE PO SCH ×2 (15:37→22:29)
--- NOTE | 2018-09-04 20:03 | HISTORY AND PHYSICAL ---
CHIEF COMPLAINT: Shortness of breath. HISTORY OF PRESENT ILLNESS: This is a 68-year-old gentleman with a history of coronary artery disease status post coronary artery bypass graft, hypertension, chronic kidney disease and hyperlipidemia. He presents to the emergency room complaining of 48 hours of increasing shortness of breath. Over the last 24 hours he has developed PND and 90 degree orthopnea just prior to coming into the emergency room. He denied any fever or chills, any night sweats, He denied fever, chills, any chest pain, palpitations, productive cough. He was found to have cardiomegaly on a chest x-ray with a proBNP of 9766. He was given 40 of Lasix IV, and he is being admitted for further evaluation and treatment. PAST MEDICAL HISTORY: 1. CAD status post coronary artery bypass graft with subsequent PCI. 2. Hypertension. 3. Chronic kidney disease. 4. Hyperlipidemia. PAST SURGICAL HISTORY: Coronary artery bypass graft. SOCIAL HISTORY: He denies alcohol, tobacco or illicit drug use. ALLERGIES: No known drug allergies. HOME MEDICATIONS: A list will be obtained by the nursing staff. Once confirmed for accuracy it will be reviewed and restarted as appropriate. REVIEW OF SYSTEMS: Discussed with the patient with pertinent positives stated in the HPI. He denied any chest pain, palpitations, syncope, dizziness, productive cough, any night sweats, recent weight loss or weight gain, nausea, vomiting, diarrhea, constipation, black or bloody vomitus or stools, hematuria, dysuria, frequency or urgency. PHYSICAL EXAMINATION: GENERAL: This is a 68-year-old gentleman who is sitting up in the bed in no distress. VITAL SIGNS: Blood pressure is 137/76, with heart rate of 61, respirations 18, temperature is 98.3, with room air sats 98-100%. EYES: Pupils are equal, round, react to light. EOMs are intact. Sclerae are anicteric. HEENT: Head is normocephalic, atraumatic. Mucous membranes are moist. NECK: Supple with trachea midline. CARDIOVASCULAR: Regular rate and rhythm. S1 and S2 are appreciated. He has bilateral lower extremity edema from about mid ibarra down with peripheral pulses palpable x 4 extremities. PULMONARY: Breath sounds are diminished at the bases. Chest rises and falls symmetrically with respiration. He has no increased work of breathing noted. GASTROINTESTINAL: Abdomen is soft, nontender, nondistended, with bowel sounds in all 4 quadrants. GENITOURINARY: He has no CVA nor suprapubic tenderness. NEUROLOGIC: He is alert and oriented x 3. SKIN: Warm and dry. DIAGNOSTICS: WBC of 6.1, with a hemoglobin of 10, hematocrit 31.7, platelets of 92,000. Sodium 140, potassium 3.4, BUN 21, creatinine 2.2 with a glucose of 147. ProBNP of 9766. Chest x-ray reveals cardiomegaly. Lungs are well expanded. Heart is mildly enlarged. Sternal wires are present. Vessels are not distended. There are no infiltrates. EKG reveals sinus rhythm at a rate of 69, with nonspecific ST-T wave abnormality with a QTc of 473. ASSESSMENT AND PLAN: 1. Shortness of breath with PND and orthopnea. 2. Elevated proBNP. 3. Acute kidney injury on chronic kidney disease with a baseline creatinine, looks like of 2 to 2.2. 4. Coronary artery disease status post coronary artery bypass graft. 5. Hypertension. 6. Hyperlipidemia. PLAN: Patient will be admitted to the Med/Surg floor, placed on telemetry. We will continue to trend vital signs. We will identify his home medications, continue as appropriate. He will be strict I O with daily weights. Check a CBC, CMP in the morning. Urine culture is pending. Dictated by JASON Ayala for Kamari Trejo MD This chart was documented by, JASON Ayala and accurately reflects the services performed, treatment plan and medical decisions as attested by the providers signature Kamari Trejo MD. cc: JASON Ayala MD
[2018-09-04] MEDS: LIPITOR PO SCH (22:28)
--- NOTE | 2018-09-05 04:16 | HISTORY AND PHYSICAL ---
ADDENDUM: Patient seen and examined by myself. Full note dictated and discussed with nurse practitioner. Patient presented to the hospital with 2 to 3 day history of cough, congestion and shortness of breath. He states that his symptoms get much worse at night. He does have a known history of coronary artery disease as well as COPD. His blood pressure is elevated at 176/104 while in the ER. We will admit to the hospital, place on IV Lasix for congestive heart failure exacerbation, and will follow. Please see full note. cc: Kamari Trejo MD
[2018-09-05 07:17] LABS: BASO# 0.03 X1000 (0.0-0.2); BASO% 0.6 % (0.0-0.8); EOS# 0.28 X1000 (0.0-0.7); EOS% 5.6 % (0.0-10.0); HEMATOCRIT 32.9 % (42.0-52.0); HEMOGLOBIN 10.1 g/dL (14.0-18.0); LYMPH# 1.07 X1000 (1.2-3.4); LYMPH% 21.5 % (20.5-51.1); MCH 30.8 PG (27-31); MCHC 30.7 g/dL (33-37); MCV 100.3 FL (81-99); MONO% 10.1 % (1.7-9.3); MPV 11.9 FL (7.4-10.4); NEUT# 3.09 X1000 (1.4-6.5); NEUT% 62.2 % (42.2-75.2); PLT 102 X1000 (130-400); RBC 3.28 XMIL (4.7-6.1); WBC 4.97 X1000 (4.8-10.8)
[2018-09-05 07:52] LABS: ALBUMIN 3.5 g/dL (3.5-5.0); CALCIUM 9.1 mg/dL (8.8-10.2); CREATININE 2.1 mg/dL (0.7-1.2); POTASSIUM 3.2 mmol/L (3.5-5.1); TOTAL BILIRUBIN 1.9 mg/dL (0.20-1.00); TOTAL PROTEIN 7.9 g/dL (6.3-8.3)
[2018-09-05] MEDS ORDERED: KLOR-CON PO ONE (08:11)
[2018-09-05] MEDS: IMDUR PO SCH (09:00)
[2018-09-05] MEDS ORDERED: BUMEX PO SCH (09:00)
[2018-09-05] MEDS: APRESOLINE PO SCH ×3 (09:00→20:33)
[2018-09-05] MEDS: COREG PO SCH ×2 (09:00→20:33)
[2018-09-05] MEDS: LASIX IV SCH ×2 (09:01→20:32)
[2018-09-05] MEDS: ASPIRIN PO SCH (09:01)
[2018-09-05] MEDS: KLOR-CON PO SCH (09:03)
--- NOTE | 2018-09-05 18:35 | PROGRESS NOTE ---
DATE: 09/05/2018 SUBJECTIVE: The patient has no new complaints. He states that overall he is feeling better. He is still having pain on his left lower extremity, but notes this is chronic and has not really changed. OBJECTIVE: Vital Signs: Temperature 98, pulse 60, respiratory rate 20, blood pressure 147/90. General: The patient is awake and alert. He is very pleasant to talk with. He appears oriented. He is able to answer questions as well as ask me questions. HEENT: Normocephalic. Neck: Supple. CARDIOVASCULAR: Regular rate. No murmurs. Chest: Clear and nonlabored. Abdomen: Soft, nondistended. Extremities: Left foot is bandaged. It is clean, dry and intact. ASSESSMENT: 1. Shortness of breath, appears to be back to his baseline. 2. Elevated BNP. This is actually less than what he has been in the past. 3. Hypokalemia. Will replace. 4. Chronic renal failure, stable. 5. Chronic lower extremity edema. Will continue to follow. cc: Kamari Trejo MD
[2018-09-05] MEDS: LIPITOR PO SCH (20:32)
[2018-09-06 07:06] LABS: BASO# 0.04 X1000 (0.0-0.2); BASO% 0.6 % (0.0-0.8); EOS% 4.5 % (0.0-10.0); HEMATOCRIT 32.7 % (42.0-52.0); HEMOGLOBIN 10.1 g/dL (14.0-18.0); IMM GRAN# 0.01 X1000 (0.0-0.04); IMM GRAN% 0.2 % (0.0-0.5); LYMPH# 1.27 X1000 (1.2-3.4); LYMPH% 19.1 % (20.5-51.1); MCH 31.3 PG (27-31); MCHC 30.9 g/dL (33-37); MCV 101.2 FL (81-99); MONO# 0.77 X1000 (0.11-0.59); MONO% 11.6 % (1.7-9.3); MPV 11.5 FL (7.4-10.4); NEUT# 4.27 X1000 (1.4-6.5); PLT 103 X1000 (130-400); RBC 3.23 XMIL (4.7-6.1); WBC 6.66 X1000 (4.8-10.8)
[2018-09-06 08:34] VITALS: BP 145/82
[2018-09-06] MEDS: APRESOLINE PO SCH (09:26)
[2018-09-06] MEDS: ASPIRIN PO SCH (09:27)
[2018-09-06] MEDS: KLOR-CON PO SCH (09:27)
[2018-09-06] MEDS: IMDUR PO SCH (09:27)
[2018-09-06] MEDS: COREG PO SCH (09:27)
[2018-09-06] MEDS: LASIX IV SCH (09:27)
--- NOTE | 2018-09-07 08:36 | PROGRESS NOTE ---
DATE: 09/06/2018 SUBJECTIVE: Patient denies any new complaints, states overall he is feeling better. OBJECTIVE: Vital signs: Temp 97 degrees, pulse 64, respiratory 22, BP 159/90. General: Patient is awake, alert, currently in no distress. Overall, states that he is feeling better, still having a lot of edema in his lower extremities. Neuro: No focal changes. Abdomen: Soft, nondistended, and nontender. ASSESSMENT: 1. Hypokalemia. Potassium is elevated at 3.2. We will continue to replace. 2. Shortness of breath. 3. Elevated proBNP. 4. Known coronary artery disease. 5. Hypertension. 6. Hyperlipidemia. cc: Kamari Trejo MD MTDD
--- NOTE | 2018-09-10 04:02 | DISCHARGE SUMMARY ---
ADMISSION DATE: 09/04/2018 DISCHARGE DATE: 09/06/2018 ADDENDUM: Patient seen and examined by myself. Full note dictated and discussed with nurse practitioner. On discharge, patient is awake, alert. He is feeling better. He is tolerating Bumex. Shortness of breath has improved. Therefore, he will be discharged home. Please see full note. cc: Kamari Trejo MD
--- NOTE | 2018-09-14 09:30 | DISCHARGE SUMMARY ---
ADMISSION DATE: 09/04/2018 DISCHARGE DATE: 09/06/2018 DISCHARGE ASSESSMENT: 1. Hypokalemia, resolved. 2. Shortness of breath, improved. 3. Elevated proBNP. 4. Known coronary artery disease. 5. Hypertension. 6. Hyperlipidemia. CONSULTATIONS: None. PROCEDURES: None. BRIEF HOSPITAL COURSE: Patient was admitted to the hospital and treated in the usual fashion. Placed on Lasix and his potassium was replaced. Thankfully on discharge he is awake, alert. He is in no distress. Overall he is feeling better. He was able to ambulate, and we will discharge him home. DISCHARGE MEDICATIONS: Aspirin, Coreg 25 twice daily, hydralazine 50 three times daily, lisinopril 20, Tylenol p.r.n., bumetanide 1 twice daily, potassium, Lipitor, Imdur. DISPOSITION: Patient will be discharged home. We actually did not change any of his home medications. After given IV Lasix in the ER and restarting his home medications, he seems to be back in his baseline status and is overall feeling better and is doing well. Therefore, he will be discharged home. He will follow up with his primary care in one to two weeks. TIME SPENT: Greater than 30 minutes was spent in total care. cc: Kamari Trejo MD
== END 2018-09-06 10:03 | disposition home or self-care (01) | DRG 292 ==
LOC: P.ED 22:57 → P.EDIPHOLD 09-04 02:10 → P.MEDSURG 09-04 08:12
PROVIDERS: ATTEND Family Medicine
CPT/HCPCS: 36415; 71020; 71046; 80053; 81001; 82150; 83605; 83880; 85025; 87088; 93005; 96374; 99285; A9270; J1940

== ENCOUNTER 2018-12-27 14:33 | Inpatient (IN) ==
--- NOTE | 2018-12-27 15:30 | EKG Report ---
Test Performed on : 12/27/2018 2:54:31 PM Test Reason : chf cabg Blood Pressure : / mmHG Vent. Rate : 065 BPM Atrial Rate : 065 BPM P-R Int : 162 ms QRS Dur : 122 ms QT Int : 458 ms P-R-T Axes : 039 -15 208 degrees QTc Int : 476 ms Normal sinus rhythm. Nonspecific intraventricular conduction delay Nonspecific T wave abnormality Abnormal ECG When compared with ECG of 03-DEC-2018 12:57, (Unconfirmed) premature ventricular complexes. are no longer present NM interval has decreased Unconfirmed Result
[2018-12-27 15:34] LABS: BASO# 0.02 X1000 (0.0-0.2); BASO% 0.5 % (0.0-0.8); EOS# 0.23 X1000 (0.0-0.7); HEMATOCRIT 29.1 % (42.0-52.0); IMM GRAN# 0.01 X1000 (0.0-0.04); IMM GRAN% 0.3 % (0.0-0.5); LYMPH# 0.66 X1000 (1.2-3.4); LYMPH% 17.1 % (20.5-51.1); MCH 30.7 PG (27-31); MCHC 30.9 g/dL (33-37); MCV 99.3 FL (81-99); MONO# 0.64 X1000 (0.11-0.59); MONO% 16.6 % (1.7-9.3); MPV 11.6 FL (7.4-10.4); NEUT# 2.29 X1000 (1.4-6.5); NEUT% 59.5 % (42.2-75.2); PLT 92 X1000 (130-400); RBC 2.93 XMIL (4.7-6.1); RDW 14.5 % (11.5-14.5); WBC 3.85 X1000 (4.8-10.8)
--- NOTE | 2018-12-27 15:34 | Diag Imaging Result Doc PS360 ---
EXAM: CHEST-2 VIEWS INDICATION: edema hx chf TECHNIQUE: 2 views COMPARISON: 12/03/2018 FINDINGS: The lungs are grossly clear. There is no discrete pleural fluid collection or pneumothorax. There is stable cardiomegaly and evidence of prior CABG. The cardiomediastinal silhouette and central vasculature are unremarkable, otherwise. IMPRESSION: Stable cardiomegaly. No evidence of acute chest pathology. Electronically signed by Eder Ramon 12/27/2018 3:32 PM
[2018-12-27] MEDS ORDERED: LASIX IV ONE (15:40)
[2018-12-27 15:48] LABS: ALBUMIN 3.5 g/dL (3.5-5.0); CALCIUM 8.4 mg/dL (8.8-10.2); CREATININE 2.3 mg/dL (0.7-1.2); POTASSIUM 3.9 mmol/L (3.5-5.1); TOTAL PROTEIN 8.1 g/dL (6.3-8.3)
[2018-12-27 15:55] LABS: INR 1.36; PROTIME 17.5 Seconds (11.0-16.0)
[2018-12-27 16:02] LABS: BE 1.4 mmoll (-3.0-3.0); BLOOD TYPE ARTERIAL; METHB 0.8 % (0.0-1.5); O2(CT) 13.7 mL/dL (15.0-23.0); O2HB 95.5 % (95.0-99.0); PCO2(98.6) 32 mmHg (35-45); PO2(98.6) 91 mmHg (60-100); SAMPLE BLOOD; SAO2 99.2 % (95.0-100.0); THB 10.1 g/dL (11.5-17.4); pH(98.6) 7.49 (7.35-7.45)
[2018-12-27 16:05] LABS: ALLEN TEST YES; MODALITY ROOM AIR
--- NOTE | 2018-12-27 17:32 | PROVIDER DOCUMENTATION ---
This chart was entered by Dena Pineda Scribe, acting as scribe for Zane Potter MD. HPI-General Adult - General Chief Complaint: Edema Stated Complaint: LEG PAIN/EDEMA Time Seen by Provider: 12/27/18 15:25 Source: patient Allergies/Adverse Reactions: Patient Allergies Allergy/AdvReac Type Severity Reaction Status Date / Time No Known Allergies Allergy Verified 09/09/18 22:53 Home Medications: Home Medication List Medication Instructions Recorded Confirmed Last Taken Type Aspirin 81 mg PO DAILY 02/04/14 09/04/18 09/03/18 06:00 History Carvedilol 25 mg PO BID 02/04/14 09/04/18 09/03/18 06:00 History Hydralazine [Apresoline] 50 mg PO TID 03/20/17 09/04/18 09/03/18 12:00 History Lisinopril 20 mg PO DAILY 10/29/17 09/04/18 09/03/18 06:00 History Acetaminophen [Tylenol] 650 mg PO Q4H PRN PRN #30 tab 11/01/17 09/04/18 Unknown Rx ATORVAstatin [Lipitor] 1 tab PO HS 07/03/18 09/04/18 09/02/18 21:00 History Bumetanide 1 tab PO BID 07/03/18 09/04/18 09/03/18 06:00 History Isosorbide Mononitrate E.r. [Imdur] 1 tab PO DAILY 07/03/18 09/04/18 09/03/18 06:00 History Potassium Chloride 1 tab PO DAILY 07/03/18 09/04/18 09/03/18 06:00 History Tramadol [Ultram] 50 mg PO Q6H PRN PRN #12 tab 10/14/18 Unknown Rx Tramadol [Ultram] 50 mg PO Q6H PRN PRN #12 tab 10/14/18 Unknown Rx Doxycycline 100 mg PO BID #14 tab 10/16/18 Unknown Rx Prednisone 20 mg PO DAILY 6 Days #6 tab 10/16/18 Unknown Rx Potassium Chloride E.r. [Klor-Con] 10 meq PO DAILY #7 tab 12/03/18 Unknown Rx - History of Present Illness -Gen Adult Nature of Presenting Problems: Patient is a 68 year old male who presents with pain and swelling to bilateral lower extremities that have been present for 2 weeks. Report history of CHF. States he has been taking his fluid pill. Denies chest pain and shortness of breath. Location of Pain/Injury: reports: lower extremity (bilateral) Pain Radiation: reports: no radiation Quality of Pain: reports: aching Severity: reports: mild Onset/Duration: reports: other (2 weeks) Timing: reports: still present, getting worse Context/Activities at Onset: reports: light activity Associated Symptoms: reports: other (swelling to bilateral lower extremities) Similar Symptoms Previously?: Yes Recently seen or treated by another doctor?: No Review of Systems - Adult - REVIEW OF SYSTEMS - ADULT Constitutional: reports: no symptoms reported Eyes: reports: no symptoms reported Ears, Nose, Mouth & Throat: reports: no symptoms reported Cardiovascular: reports: no symptoms reported. denies: chest pain, irregular heart rate, palpitations Respiratory: reports: no symptoms reported. denies: cough, shortness of breath, wheezing Gastrointestinal: reports: no symptoms reported Genitourinary: reports: no symptoms reported Musculoskeletal: reports: other (pain and swelling to bilateral lower e xtremities). denies: back pain, neck pain Integumentary: reports: no symptoms reported Neurological: reports: no symptoms reported Psychiatric: reports: no symptoms reported Endocrine: reports: no symptoms reported Hematologic/Lymphatic: reports: no symptoms reported Allergic/Immunologic: reports: no symptoms reported All Other Systems: Reviewed and Negative Past History - Adult - PAST MEDICAL HISTORY-ADULT Review of Records: reports: Nursing Assessment Review, Medications Reviewed, Social history reviewed & non-contributory. Major Childhood Illnesses: reports: denies history Cardiovascular: reports: A-Fib, CAD, CHF, hyperlipidemia, [place] Respiratory: reports: COPD Gastrointestinal: reports: denies history Obstetrical/Gynecological: reports: denies history Genitourinary: reports: kidney disease Musculoskeletal: reports: denies history Neurological: reports: CVA Psychiatric: reports: denies history Endocrine/Immune: reports: denies history Other Conditions: reports: denies history - PRIOR SURGERIES/PROCEDURES Surgical/Procedure History: reports: CABG, cardiac stent - IMMUNIZATION STATUS Childhood Immunizations: See Nurse Assessment Flu Vaccine: See Nurse Assessment - FAMILY HISTORY Family History: reviewed, not pertinent - SOCIAL HISTORY Smoking: chew, less than 1 pack/day Substance Use: denies Living Situation: family Physical Exam-General - PHYSICAL EXAM-ADULT Initial Vital Signs Reviewed: Yes - CONSTITUTIONAL General Appearance: alert, no apparent distress. negative: lethargic, slow to respond - RESPIRATORY Respiratory: chest non-tender, lungs clear, normal breath sounds. negative: crackles, stridor - CARDIOVASCULAR Cardiovascular: normal peripheral pulses, regular rate, rhythm. negative: tachycardia, systolic murmur - GASTROINTESTINAL (ABDOMEN) Abdominal Exam: normal bowel sounds, non tender, soft. negative: distended, hernia - MUSCULOSKELETAL Extremity: non-tender, other (3 + pitting edema to bilateral lower extremities.) . negative: deformity, erythema - SKIN Integumentary: normal color, normal turgor, warm/dry. negative: cyanosis, ecchymosis, erythema, jaundice - NEUROLOGIC Neurologic: grossly normal. negative: aphasia, facial droop - PSYCHIATRIC Psych/Mental Status: normal mood/affect, oriented x 3. negative: paranoid Progress - PLAN OF CARE/RESULTS Progress/Plan/Lab Results: Vital Signs - 8 hr 12/27/18 14:35 Temperature 98 F Pulse Rate 62 Respiratory Rate 18 Blood Pressure 147/89 O2 Sat by Pulse Oximetry 99 Orders Category Date Time Status Nursing- Obtain EKG ONCE Care 12/27/18 14:41 Active Saline Loc NOW Care 12/27/18 15:10 Active CHEST-2 VIEWS [RAD] Stat Exams 12/27/18 14:41 Completed CBC WITH DIFF [HEME] Stat Lab 12/27/18 15:05 Results CK PROFILE [SP CHEM] Stat Lab 12/27/18 15:05 Received COMPREHENSIVE METABOLIC PANEL [CHEM] Stat Lab 12/27/18 15:05 Received D-DIMER [COAG] Stat Lab 12/27/18 15:05 Received PRO B-NATRIURETIC PEPTIDE Stat Lab 12/27/18 15:05 Received PROTIME WITH INR [COAG] Stat Lab 12/27/18 15:05 Received TROPONIN T Stat Lab 12/27/18 15:05 Received EKG [EKG] Stat Ther 12/27/18 14:41 Draft Result Diagrams: 12/27/18 15:05 12/27/18 15:05 - EKG 1 Time of EKG reading by physician:: 14:54 EKG Read and Signed by:: Zane Potter EKG Interpretation (*Must complete 3 of following elements*): Abnormal (nonspecific T wave abnormality.) Rate: 65 Rhythm: normal sinus rhythm MO Interval: normal Comments: nonspecific intraventricular conduction delay; - XRAY 1 XRAY Study: Chest Impression: See EMR Report ( EXAM: CHEST-2 VIEWS INDICATION: edema hx chf TECHNIQUE: 2 views COMPARISON: 12/03/2018 FINDINGS: The lungs are grossly clear. There is no discrete pleural fluid collection or pneumothorax. There is stable cardiomegaly and evidence of prior CABG. The cardiomediastinal silhouette and central vasculature are unremarkable, otherwise. IMPRESSION: Stable cardiomegaly. No evidence of acute chest pathology. Electronically signed by Eder Ramon 12/27/2018 3:32 PM 12/27/18 1532 Interpreting Physician: Eder Ramon MD Dictated Date/Time: 12/27/18 1530 cc: Zane Potter MD; Ignacio Browning Jr, MD) - CONSULTS/PCP/HOSPITALIST Notification #1 *Consult/PCP/Hospitalist*: Dr. Trejo Time Discussed: 17:05 Reason/Comments: Dr. Potter consulted with Dr. Trejo about patient. Consult Disposition: Admit Departure - Departure Date of Disposition Decision: 12/27/18 Time of Disposition Decision: 17:05 DIAGNOSIS: Dependent edema, CHF (congestive heart failure), Elevated d-dimer, Anemia, Chronic kidney disease (CKD) Disposition: ADMITTED INPATIENT 09 Certified Medical Emergency: Emergent Condition: Stable Referrals and Follow-Ups: Ignacio Browning Jr, MD [Primary Care Provider] - - Critical Care Note This patient required my direct & personal management of CC.: No Attestation - Physician/ ALBER Attestation The physician spent face to face time with patient:: Yes Advanced Practice Provider documentation review:: Supervising physician onsite and consulted in the evaluation and care of this patient. The physician did have a face to face encounter with the patient. This chart was documented by the indicated scribe, (Dena Pineda Scribe) and accurately reflects the services I performed and decisions made by me, Zane Potter MD, as attested by the provider's signature.
[2018-12-27] MEDS ORDERED: TYLENOL PO PRN ×2 (18:12→18:30)
[2018-12-27] MEDS ORDERED: ZOFRAN IV PRN (18:30)
[2018-12-27] MEDS: LASIX IV SCH (18:56)
[2018-12-27] MEDS: LOVENOX SUBQ SCH (18:56)
--- NOTE | 2018-12-28 00:03 | HISTORY AND PHYSICAL ---
CHIEF COMPLAINT: Swelling lower extremities. HISTORY OF PRESENT ILLNESS: Patient is a 68-year-old male who has a known history of significant coronary disease. He presented to the hospital with increased swelling in his lower extremities. Notes that he always has swelling but this has been worse over the past 2 weeks. Denies any fevers or chills. States he has been taking his medication, denies missing them. He denies any chest pain, palpitations. Denies any headaches, blurred vision. ALLERGIES: No known drug allergies. MEDICATIONS: Aspirin 81, Coreg 25 twice daily, hydralazine 50 three times a day, lisinopril 20, tramadol p.r.n., potassium, isosorbide mononitrate, bumetanide, Lipitor. REVIEW OF SYSTEMS: Positive cough. Denies really any congestion. Has shortness of breath with activity and dyspnea on exertion. Denies chest pain, palpitations. Does have swelling of the lower extremities. Denies any focalized numbness, tingling, or weakness in his extremities. Denies dysuria, urinary frequency, urgency. Denies hesitancy, polyuria or polydipsia. PAST MEDICAL HISTORY: Atrial fibrillation, known coronary artery disease, congestive heart failure, hyperlipidemia, history of COPD, history of cerebrovascular accident. He has had a CABG and coronary stenting in the past. REVIEW OF SYSTEMS: Noncontributory. SOCIAL HISTORY: The patient has a longstanding history of smoking. Denies any alcohol or substance abuse currently. PHYSICAL EXAMINATION: VITAL SIGNS: Temperature 98 degrees, pulse 62, respiratory 18, BP 147/89, saturation 99% on 2 L. GENERAL: Patient is pleasant to talk with. He is in no current respiratory distress while he is lying in the bed. HEENT: Normocephalic. NECK: Supple. CARDIOVASCULAR: Regular rate. CHEST: Decreased but equal breath sounds. ABDOMEN: Soft, nondistended. EXTREMITIES: 3+ pitting edema to his knees. He has chronic brawny edematous changes in bilateral lower extremities of the ankles. SKIN: Warm, dry. No rashes. NEUROLOGIC: No focal changes. LABS: CBC,CMP essentially normal with a creatinine of 2.3, which is his baseline. Glucose 153. ASSESSMENT: 1. Congestive heart failure with systolic exacerbation, acute on chronic. 2. Dependent edema with brawny edematous changes. 3. Chronic kidney disease, appears at his baseline. 4. Elevated D-dimer. We will begin workup for this. PLAN: We will admit patient to the hospital, place on IV Lasix, and we will follow. cc: Kamari Trejo MD
[2018-12-28 03:16] LABS: HEMATOCRIT 29.1 % (42.0-52.0); MCH 30.8 PG (27-31); MCHC 30.9 g/dL (33-37); MCV 99.7 FL (81-99); MPV 10.6 FL (7.4-10.4); RBC 2.92 XMIL (4.7-6.1); RDW 14.4 % (11.5-14.5); WBC 4.24 X1000 (4.8-10.8)
[2018-12-28 03:44] LABS: ALBUMIN 3.8 g/dL (3.5-5.0); CALCIUM 8.6 mg/dL (8.8-10.2); CREATININE 2.3 mg/dL (0.7-1.2); POTASSIUM 3.7 mmol/L (3.5-5.1); TOTAL BILIRUBIN 2.4 mg/dL (0.20-1.00); TOTAL PROTEIN 8.3 g/dL (6.3-8.3)
[2018-12-28] MEDS: LASIX IV SCH ×2 (06:17→18:03)
--- NOTE | 2018-12-28 13:00 | ECHO REPORT ---
ORDER DATE: 12/28/2018 INDICATION: CHF. FINDINGS: 1. The right atrium is moderately enlarged at 5.2 cm. 2. Moderate tricuspid regurgitation. RV systolic pressure of 65 suggesting pulmonary hypertension. 3. Right ventricle is moderately enlarged with moderate reduction in RV systolic function. 4. Mild pulmonic insufficiency. 5. Moderate left atrial enlargement with a volume index of 37. 6. No mitral prolapse. Mild mitral regurgitation. No evidence of mitral stenosis. 7. Dilated left ventricle with an end-diastolic dimension of 6.2 cm. Normal wall thicknesses with a posterior and interventricular septal wall thickness of 1 cm each. Severe reduction in LV systolic function with an estimated ejection fraction of 20 to 25 percent and global hypokinesis. 8. The aortic valve opens well. It is trileaflet. No evidence of stenosis or insufficiency. 9. The aorta appears normal in visualized segments. 10. No pericardial effusion seen. cc: MD Kamari Hernandez MD
--- NOTE | 2018-12-28 13:39 | Diag Imaging Result Doc PS360 ---
EXAM: LUNG SCAN / VQ HISTORY: rule out PE TECHNIQUE: Nuclear medicine ventilation/perfusion lung scan COMPARISON: 10/30/2017 and recent chest x-ray FINDINGS: 39.1 mCi DTPA used for the ventilation images. 5.9 mCi MAA used for the perfusion images. No perfusion defects. No ventilation perfusion mismatch. IMPRESSION: No pulmonary embolus. Electronically signed by Angel Encarnacion 12/28/2018 1:37 PM
[2018-12-28] MEDS: APRESOLINE PO SCH ×2 (14:53→20:41)
--- NOTE | 2018-12-28 16:09 | Extremity Venous Study ---
EXAM: Venous U/S Bilateral Legs HISTORY: rule out dvt TECHNIQUE: Bilateral lower extremity venous Doppler ultrasound COMPARISON: None. FINDINGS: Right: There is good flow and compressibility in the veins of the right lower extremity. No thrombus. Left: There is good flow and compressibility in the veins of the left lower extremity. No thrombus. IMPRESSION: No evidence of deep venous thrombosis within either lower extremity. Electronically signed by Angel Encarnacion 12/28/2018 4:07 PM
--- NOTE | 2018-12-28 17:48 | PROGRESS NOTE ---
DATE: 12/28/2018 SUBJECTIVE: The patient notes that his breathing is feeling a little bit better. He is having no current new complications. Still having marked swelling and edema in his bilateral lower extremities. Still having PND. OBJECTIVE: Vital Signs: Temperature 98.6, pulse 87, respiratory rate 18, blood pressure 153/70. General: The patient is awake, alert. He is in minimal respiratory distress. He is very pleasant to talk with. HEENT: Normocephalic. Neck: Supple. Cardiovascular: Regular rate. Nonlabored. Chest: Clear. No current wheezing. Abdomen: Soft, nondistended. Neurologic: No focal changes. Extremities: Moves all extremities. He has 3+ edema in his bilateral lower extremities. ASSESSMENT: 1. Congestive heart failure, systolic, acute on chronic exacerbation. 2. Chronic renal failure. 3. Hyperglycemia. 4. Chronic kidney disease stage III at baseline. 5. Others. PLAN: We will continue the patient in the hospital. We will continue to follow. Further orders as needed. cc: Kamari Trejo MD
[2018-12-28] MEDS: LOVENOX SUBQ SCH (18:02)
[2018-12-28] MEDS: COREG PO SCH (20:41)
[2018-12-28] MEDS ORDERED: CRESTOR PO SCH (21:00)
[2018-12-29 03:26] VITALS: BP 128/77
[2018-12-29] MEDS ORDERED: IMDUR PO SCH (09:00)
[2018-12-29] MEDS ORDERED: PRINIVIL PO SCH (09:00)
[2018-12-29] MEDS ORDERED: ASPIRIN PO SCH (09:00)
[2018-12-29] MEDS: APRESOLINE PO SCH (09:19)
[2018-12-29] MEDS: COREG PO SCH (09:19)
[2018-12-29] MEDS ORDERED: LASIX IV SCH (09:30)
--- NOTE | 2018-12-29 16:12 | DISCHARGE SUMMARY ---
ADMISSION DATE: 12/27/2018 DISCHARGE DATE: 12/29/2018 ADMISSION DIAGNOSES: 1. Acute on chronic systolic heart failure exacerbation. 2. Dependent edema with brawny edematous changes. 3. Chronic kidney disease. 4. Elevated D-dimer. 5. Atrial fibrillation. 6. Hyperlipidemia. 7. History of cerebrovascular accident. 8. Coronary artery disease status post coronary artery bypass grafting. DISCHARGE DIAGNOSES: 1. Acute on chronic systolic heart failure exacerbation. 2. Dependent edema with brawny edematous changes. 3. Chronic kidney disease. 4. Elevated D-dimer. 5. Atrial fibrillation. 6. Hyperlipidemia. 7. History of cerebrovascular accident. 8. Coronary artery disease status post coronary artery bypass grafting. DIAGNOSTIC PROCEDURES AND FINDINGS: Chest x-ray 12/27/2018: Stable cardiomegaly. No evidence of acute chest pathology. EKG 12/27/2018: Sinus rhythm. Nonspecific IVCD. Nonspecific T wave changes. Echocardiogram 12/28/2018: LVEF 20% to 25%. RV systolic pressure 65 suggesting pulmonary hypertension. Mild MR. No pericardial effusion. Extremity venous study 12/28/2018: No evidence of DVT in either lower extremity. Lung VQ scan 12/28/2018: No pulmonary embolus. HOSPITAL COURSE: Mr. Prabhakar is a 68-year-old male with a known history of CAD who presented with lower extremity edema worse over the last 2 weeks prior to admission. He denied any headache or blurry vision. No chest pain or palpitations. When he came in he had a chest x-ray which did not show anything acute but he did have significant volume overload in the lower extremities so he was admitted for diuresis. In the E.R. he had a D-dimer checked which was slightly elevated which prompted studies of the lower extremities for DVT which were negative and VQ scan was negative. He was diuresed and did start to have improvement in his symptoms. This morning his vitals are stable, [place] has been ruled out, and he is now stable for discharge home. DISCHARGE MEDICATIONS: Aspirin 81 mg daily, Coreg 25 mg b.i.d., Apresoline 50 mg p.o. t.i.d., lisinopril 20 mg daily, Bumex 4 mg p.o. b.i.d., acetaminophen 650 mg p.o. every 4 hours p.r.n., KCL 20 mEq p.o. daily, Crestor 20 mg at bedtime, metolazone 2.5 mg daily, and isosorbide mononitrate 60 mg daily. DISCHARGE DIET: Heart healthy. DISCHARGE ACTIVITY: Resume activity as tolerated. DISPOSITION AND OTHER DISCHARGE INSTRUCTIONS: The patient is discharged to home to self-care. He is to continue all medications as directed. He is to follow up with Dr. Browning, his PCP, within the next 1 to 2 weeks or sooner if needed. He is to return to the E.R. or call 911 for any worsening complaints or concerns. All questions were answered. DISCHARGE TIME: Greater than 35 minutes. Dictated by JASON Contreras for Kamari Trejo MD cc: JASON Contreras MD
--- NOTE | 2018-12-29 18:59 | DISCHARGE SUMMARY ---
ADMISSION DATE: 12/27/2018 DISCHARGE DATE: 12/29/2018 DISCHARGE DIAGNOSIS: 1. Congestive heart failure, systolic, acute on chronic improved. 2. Chronic renal failure stage 3. 3. Dependent edema with brawny edematous changes bilateral lower extremities mildly improved. 4. Elevated D-dimer with a negative V/Q scan. CONSULTATIONS: None. PROCEDURE: None. BRIEF HOSPITAL COURSE: Patient is a 68-year-old male who presented to the hospital with swelling in his lower extremities, shortness of breath. The shortness of breath has improved and he is feeling better. He still has marked edema in his lower extremities but this is chronic. DISPOSITION: Patient will be discharged home. Discussed him we certainly would prefer him to stay in the hospital a few more days to continue to adjust his diuretic therapy and to attempt to get more swelling out of his lower extremities. However, the patient acknowledges that he has a that he needs to attend to today. Therefore, we will increase his home bumetanide from 1 mg twice a day to 2 mg twice a day and will follow. Patient is aware that he needs to follow up outpatient with his primary care. He will continue his potassium. cc: Kamari Trejo MD
== END 2018-12-29 11:31 | disposition home or self-care (01) | DRG 291 ==
LOC: P.ED 14:33 → P.MEDSURG 17:57 → MED 17:57 → DIRADM 18:28 → OBSVTOIN 12-28 09:50 → INTOOBSV 12-28 09:50
PROVIDERS: ADMIT Family Medicine; ATTEND Family Medicine
CPT/HCPCS: 71020; 71046; 78582; 80053; 82550; 82805; 82948; 83735; 83880; 84443; 84484; 85025; 85027; 85379; 85610; 93005; 93306; 93970; 94761; 94799; 96374; 99285; A9270; A9539; A9540; J1650; J1940; J2405; XXXXX

== ENCOUNTER 2019-06-10 21:04 | Inpatient (IN) ==
[2019-06-10 22:18] LABS: BASO# 0.02 X1000 (0.0-0.2); BASO% 0.4 % (0.0-0.8); EOS% 7.6 % (0.0-10.0); HEMATOCRIT 28.5 % (42.0-52.0); HEMOGLOBIN 8.7 g/dL (14.0-18.0); LYMPH% 11.5 % (20.5-51.1); MCH 32.6 PG (27-31); MCHC 30.5 g/dL (33-37); MCV 106.7 FL (81-99); MONO# 0.75 X1000 (0.11-0.59); MONO% 14.3 % (1.7-9.3); MPV 12.1 FL (7.4-10.4); NEUT# 3.47 X1000 (1.4-6.5); NEUT% 66.2 % (42.2-75.2); PLT 83 X1000 (130-400); RBC 2.67 XMIL (4.7-6.1); RDW 14.4 % (11.5-14.5); WBC 5.24 X1000 (4.8-10.8)
[2019-06-10 22:21] LABS: INR 1.51; PROTIME 18.5 Seconds (11.0-16.0)
[2019-06-10 22:22] LABS: PTT 38.8 Seconds (22.3-41.8)
[2019-06-10 22:45] LABS: ALB/GLOB RATIO 0.7; ALBUMIN 3.6 g/dL (3.5-5.0); CALCIUM 8.8 mg/dL (8.8-10.2); CREATININE 2.5 mg/dL (0.7-1.2); POTASSIUM 5.5 mmol/L (3.5-5.1); TOTAL BILIRUBIN 1.7 mg/dL (0.20-1.00); TOTAL PROTEIN 8.6 g/dL (6.3-8.3)
[2019-06-11] MEDS ORDERED: NS 250 ML IV ONE (05:09)
[2019-06-11] MEDS ORDERED: VITAMIN K SUBQ ONE ×2 (05:10→05:45)
[2019-06-11] MEDS ORDERED: NS 1,000 ML IV SCH ×2 (06:08→09:00)
[2019-06-11] MEDS ORDERED: SODIUM CHLORIDE 0.9% INJ ONE (06:08)
[2019-06-11] MEDS ORDERED: TYLENOL PO PRN (06:08)
[2019-06-11] MEDS ORDERED: ZOFRAN IV PRN (06:08)
--- NOTE | 2019-06-11 06:49 | HISTORY AND PHYSICAL ---
REASON FOR ADMISSION: Hematochezia yesterday night. HISTORY: Mr. Zane Prabhakar is a 61-year-old male with a past medical history of chronic kidney disease, hypertension, chronic systolic heart failure with EF of 20 to 25%, hyperlipidemia, atrial fibrillation, coronary artery disease status post CABG, prior CVA's, and COPD. She comes in today after developing sudden and prolonged hematochezia after he got back from [facility] yesterday evening. He said that once it started it did not stop for over close to an hour. Stool was dark in color. He denies any associated abdominal pain, fever or chills. No nausea or vomiting. No genitourinary complaints. He denies any use of [id number] NSAIDs. He denies any cardiorespiratory symptoms, lightheadedness or palpitations. No focal neurological complaints. No polyuria or polydipsia. REVIEW OF SYSTEMS: Twelve system review was done. Positive findings as per HPI. ALLERGIES: No known allergies. HOME MEDICATION LIST: 1. Crestor 20 mg at bedtime. 2. Aspirin 81 mg daily. 3. Coreg 25 mg b.i.d. 4. Imdur 60 mg daily. 5. Lisinopril 20 mg daily. 6. Prilosec 20 mg daily. PAST SURGICAL HISTORY: CABG, cholecystectomy, and coronary artery stenting. SOCIAL HISTORY: He does not smoke, drink, or use illicit drugs at this time. and lives with . LABORATORY WORK: White count 5000, hemoglobin and hematocrit 8 and 28. MCV of 106 and platelets 83,000. Essentially unremarkable white count differential. Potassium is 5.5, sodium is 135, BUN is 29, and creatinine 2.5. Glucose 179. Total bilirubin is 1.7. PT/INR is 18 and 1.5 with normal PTT. Stools are heme-positive. PHYSICAL EXAMINATION: VITAL SIGNS: Blood pressure 140/91, heart rate 82, respirations 17, and temperature is 98.2 degrees. He is 95% on room air. GENERAL: The patient is an elderly man not in acute distress. Alert and oriented x3. Normal mood and affect. HEENT: Head is normocephalic, atraumatic. Eyes: ROMAN, EOMI. He is anicteric. Mildly pale. ENT exam is grossly normal with some cyanosis. NECK: Supple with noticeable JVD. No bruit. No thyromegaly. CHEST: Clear when auscultated in both lung olsen. CARDIOVASCULAR: First and second sounds heard. No gallops, but 2 to 3/6 ejection systolic murmur heard in the apex. Rhythm is intermittently irregular. ABDOMEN: Slightly distended. Soft. Nontender. No organomegaly. Bowel sounds are hyperactive. RECTAL: Deferred at this time. EXTREMITIES: Patient has 2+ pitting edema both lower extremities with chronic scaling of his lower extremities in the [place] area. Pulse volume is full, irregular and symmetrical. No clubbing or peripheral cyanosis of note. NEUROLOGIC: No gross focal deficits. SKIN: Intact. No breakdown, lesion or erythema. MUSCULOSKELETAL: Grossly normal. ASSESSMENT: 1. Gastrointestinal bleed, probably upper GI bleed. 2. Macrocytic anemia, etiology to be determined. 3. Chronic thrombocytopenia. 4. Chronic kidney disease stage 3. 5. Chronic systolic heart failure. 6. Hypertensive. 7. Heart and kidney disease. 8. Coronary artery disease. 9. Hyperlipidemia. 10. Atrial fibrillation. PLAN: Patient will have serial hemoglobin and hematocrit done. If the hemoglobin is less than 8, a transfusion will be initiated. In the meantime, continue with IV crystalloid therapy. Start patient on IV Protonix for now, and consult GI to see patient. We will discontinue aspirin in the short term. Anemia workup has been ordered as there may be a chronic component to the patient's bleeding. The patient's PT/INR were elevated, and he will be given a trial dose of vitamin K. CT scan of the abdomen was done to rule out inflammatory process of the alimentary canal. However, because patient has mildly elevated bilirubin and thrombocytopenia, chronic liver disease also needs to be ruled out. Monitor patient's tolerance to IV fluids so that he does not go into full-blown CHF. For now, we will hold diuretics. JAY inhibitor and spironolactone over the next 24 hours, and reassess patient due to the fact the patient is having volume losses. cc: MD Ignacio Thompson Jr, MD
[2019-06-11 07:27] LABS: HEMATOCRIT 27.6 % (42.0-52.0); HEMOGLOBIN 8.5 g/dL (14.0-18.0)
[2019-06-11 07:33] LABS: RETIC% 1.52 % (0.8-2.1); RETIC-HE 31.4 PG (28.2-36.6)
[2019-06-11 07:58] LABS: MAGNESIUM 1.8 mg/dL (1.5-2.7); PHOSPHORUS 3.5 mg/dL (2.7-4.5)
[2019-06-11 08:17] LABS: TSH 1.99 uIUmL (0.27-4.20)
[2019-06-11] MEDS ORDERED: PROTONIX IV SCH (09:00)
[2019-06-11] MEDS: COREG PO SCH ×2 (09:14→20:31)
--- NOTE | 2019-06-11 09:20 | Diag Imaging Result Doc PS360 ---
EXAM: CHEST-PORTABLE 06/11/2019 HISTORY: chf TECHNIQUE: AP portable at 0911 COMMENT: There are sternotomy wires. There is cardiomegaly. Compared to the previous examination of 01/06/2019 there has been no significant change. IMPRESSION: Stable chest. Electronically signed by Chintan Jacques 06/11/2019 9:18 AM
--- NOTE | 2019-06-11 09:26 | EKG Report ---
Test Performed on : 06/11/2019 09:02:34 AM Test Reason : chf Blood Pressure : / mmHG Vent. Rate : 058 BPM Atrial Rate : 163 BPM P-R Int : 000 ms QRS Dur : 114 ms QT Int : 440 ms P-R-T Axes : 251 -14 204 degrees QTc Int : 431 ms Undetermined rhythm Nonspecific ST and T wave abnormality Abnormal ECG When compared with ECG of 05-FEB-2019 07:58, Current undetermined rhythm precludes rhythm comparison, needs review T wave inversion no longer evident in Anterior leads Confirmed by Madisyn PEGUERO, Jose Austin ([id number]) on 06/11/2019 11:09:06 PM
--- NOTE | 2019-06-11 09:30 | PROGRESS NOTE ---
DATE: 06/11/2019 SUBJECTIVE: The patient says he has a little bit of abdominal discomfort. He had some dark blood coming from his rectum, and came in the hospital earlier this morning. Hemoglobin was 8.7 and down to 8.5 now. At the office, he had a 9.3 before all of this so he had some chronic anemia probably from his kidney disease. He has a creatinine of 2.5 which is chronic. He also had a total bilirubin of 1.70 but, he has had that elevated in the past as well and that is a chronic condition. The patient does have congestive heart failure with an EF between 25 and 30%. Generally, he sees Dr. Mathias in [place]. He has been a little short of breath here as well. OBJECTIVE: Blood pressure is 144/94, respirations 22, pulse 79, and temperature 98 degrees Fahrenheit.HEENT: Normocephalic. EOMS intact. PERRLA. Throat clear. Lungs: Clear to auscultation and percussion without rhonchi, rales, or wheezes. Chest x-ray is pending. EKG shows a slightly irregular rhythm, possibly atrial fibrillation. He has had atrial fibrillation in the past according to the history. Heart: Slightly irregular without murmurs, gallops, or friction rubs. Abdomen: Soft. Active bowel sounds with mild generalized tenderness. Neurological: Intact grossly. ASSESSMENT: 1. Gastrointestinal bleed. 2. Congestive heart failure. 3. CAD. PLAN: We will consult GI which has already been done, and will consult Cardiology since this patient has such severe congestive heart failure with such a low EF. cc: Ignacio Browning Jr, MD
--- NOTE | 2019-06-11 10:14 | Diag Imaging Result Doc PS360 ---
CT ABD/PELVIS W/ORAL CONT ONLY - 06/11/2019 INDICATION: GI bleed COMPARISON: 10/29/2017 FINDINGS: Stable severe cardiomegaly. Stable calcified pleural-based scarring at the posterior right hemithorax. No infiltrates in the lung bases. There is severe body wall edema. There is trace ascites. There are cholecystectomy clips. There is severe vascular calcification of the superior mesenteric artery which is probably stenotic. There is severe diffuse vascular disease. There is mild splenomegaly. The spleen measures 12 x 5 cm. No radiodense renal stones. No hydronephrosis or hydroureter. Urinary bladder, prostate, and rectum are normal. No significant constipation. There are moderate degenerative changes of the spine. No acute or suspicious bony lesion. IMPRESSION: 1. Trace ascites. Severe body wall edema. 2. Cardiomegaly. 3. Splenomegaly. 4. 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 This exam was performed using automated exposure control, adjustment of mA or kV according to patient size, and/or use of iterative reconstruction technique Electronically signed by Tavo Baum 06/11/2019 10:12 AM
[2019-06-11 10:38] LABS: URIC ACID 8.9 mg/dL (3.4-7.0)
[2019-06-11] MEDS ORDERED: FLU VACCINE IM ONE (11:06)
--- NOTE | 2019-06-11 12:05 | CARDIOLOGY CONSULTATION ---
DATE: 06/11/2019 REASON FOR CONSULTATION: Patient with known case of congestive heart failure, presenting with GI bleeding. CHIEF COMPLAINT: Shortness of breath, swelling, and blood per rectum. HISTORY: Mr. Prabhakar is a 69-year-old black gentleman who is followed by Dr. Sergio Mathias at the [facility], and also by Dr. Browning, who presented to the emergency room at 5 a.m. today with complaints that early this morning, he noted some blood coming out of the rectum. He thought that he was urinating and losing control, and then he realized it was blood. He said that he did not feel the urge to have a bowel movement. In addition, he has been noticing persistent swelling of his legs, increasing dyspnea, and also some prominence of his abdomen. Upon presentation, they did a chest x-ray that shows cardiomegaly. They have done blood work that shows a hemoglobin of 8.7, sodium 135, potassium 5.5, BUN is 29, creatinine 2.5. ProBNP level is 15,788. They have done a CT of the abdomen and pelvis that shows trace ascites with severe body wall edema, splenomegaly, cardiomegaly, and significant superior mesenteric artery disease with probable arterial stenosis. EKG today shows "slow" atrial flutter with 3:1 to 4:1 block. The patient, at this time, is not having any chest pain. He says that as long as he is laying in bed, he feels comfortable. Actually, he is hungry. He does not have any abdominal pain right now. No fever. PAST MEDICAL HISTORY: Very extensive. He has had coronary heart disease diagnosed in 2002 at the time of a myocardial infarction. He was treated by surgical revascularization. Over the course of the years, he has had multiple coronary interventions. The last intervention took place on 09/13/2013. At that time, they addressed stenosis of saphenous vein graft to the right coronary artery, and also a vein graft to the marginal system. Since then, he has had no further interventions. He has developed progressive worsening systolic heart failure. Most recent imaging study reportedly showed ejection fraction in the 20% to 25% range. He has hypertension. He has developed chronic kidney insufficiency. He has dyslipidemia, COPD, and he has had a previous reported stroke. PAST SURGICAL HISTORY: Coronary bypass x3 by Dr. Brady in [place] that included left radial graft to OM 2, a vein graft to OM 3, and vein graft to posterior descending branch of right coronary artery. He has had cholecystectomy and several coronary interventions. SOCIAL HISTORY: He is , disabled, lives at home with . He has been for close to 30 years. He has 4 children. He retired from [employer] at the time of his heart attack. He chews tobacco. FAMILY HISTORY: Brother with coronary disease. ALLERGIES: Negative. HOME MEDICATIONS: As listed at the time of admission, included the following: Aspirin 81 daily, bumetanide 2 tablets daily which probably corresponds to 2 mg twice a day, isosorbide mononitrate 60 mg daily, carvedilol 25 twice a day, lisinopril 20 daily, omeprazole 20 daily, potassium chloride, Crestor 20 at bedtime, spironolactone 50 mg daily. REVIEW OF SYSTEMS: He has noted progressive swelling of the legs and also the abdomen. He has significant exertional dyspnea. He has episodes of paroxysmal nocturnal dyspnea. No significant chest pain. Generally, he does not do very much at home. He is very sedentary. He has never had previous episodes of gastrointestinal bleeding. No other positives on the multiple systems reviewed. PHYSICAL EXAMINATION: Vital Signs: Blood pressure is 144/94, temperature 98 degrees, pulse 79, respirations 22. General: He is awake, alert, chronically ill, in no distress. HEENT: He has prominent jugular veins. Chest: Diminished breath sounds bilaterally with some dullness to percussion at the right base. Heart: Heart sounds appear to be regular. I do not hear any gallop or murmur. Abdomen: Slightly distended. Cannot rule out ascites there. There is no palpable liver. Extremities: There is 2+ edema bilaterally, brawny. Pulses are diminished. Neurological: Nonfocal. Moves 4 extremities. He is awake, alert. IMPRESSION: 1. Patient with chief complaint of gastrointestinal bleeding coming from the rectum. This needs to be evaluated by the appropriate senior energy consultant. The patient is not taking any anticoagulant at this time, other than aspirin. 2. Chronic systolic heart failure. This is ischemic in nature. Previous myocardial infarction. He is clinically in functional class 3 to 4 of [place] [employer]. 3. History of severe coronary heart disease, multivessel. Previous triple bypass with multiple interventions in the past. His pattern of chest symptoms appears to be consistent with angina pectoris functional class 2 to 3. 4. Abnormal electrocardiogram with the presence of atrial flutter, 3:1 to 4:1. Rate is controlled. 5. Chronic Kidney disease. 6. COPD. RECOMMENDATION: At this time, the patient is going to be treated very conservatively from a cardiac viewpoint. We will try to promote diuresis. The gastrointestinal issue needs to be addressed by the GI senior energy consultant. We will see how he does over the next couple of days.we will try ISDN+ Hydralazine to optimize Cardiac output (preload and afterload reducing agents). Upon discharge, he needs to be followed by his regular control valve mechanic in [place]. cc: MD Ignacio Myles Jr, MD MTDD
[2019-06-11] MEDS: APRESOLINE PO SCH ×2 (14:12→17:15)
[2019-06-11] MEDS: ISORDIL PO SCH ×2 (14:12→17:15)
[2019-06-11 15:57] LABS: HEMATOCRIT 28.3 % (42.0-52.0); HEMOGLOBIN 8.4 g/dL (14.0-18.0)
--- NOTE | 2019-06-11 16:12 | GASTROENTEROLOGY CONSULTATION ---
DATE: 06/11/2019 REASON FOR CONSULTATION: GI bleed. HISTORY OF PRESENT ILLNESS: Mr. Prabhakar is a 69-year-old male with past medical history of chronic kidney disease, hypertension, CHF, CVA and CABG. He stated that last night, after he came back from the worship around 7:00 or 8:00 pm, he was bleeding. He described it as black, tarry,with clots, looked like jelly stools. He denied any nausea, vomiting, diarrhea, headache, shortness of breath, fever, chills, dizziness, or drowsiness. He has a history of taking aspirin and [id number] NSAIDs like Aleve. PAST MEDICAL HISTORY: COPD, CHF, CVA, hypertension, kidney disease. PAST SURGICAL HISTORY: CABG, cholecystectomy, and coronary artery stent. ALLERGIES: No known drug allergies. FAMILY HISTORY: Mom had hypertension, and brother had heart attack. SOCIAL HISTORY: He is and has 4 kids. He was a former smoker. Denies having alcohol. He chews tobacco, 1 pack every day. HOME MEDICINES: Aspirin 81 mg, carvedilol 25 mg, lisinopril 20 mg, aspirin 81 mg daily, carvedilol 25 mg twice a day, lisinopril 20 mg daily, Crestor 20 mg at bedtime, potassium chloride 20 mEq daily, bumetanide 2 mg twice a day, Aldactone 25 mg daily, isosorbide mononitrate 50 mg daily, Prilosec 20 mg daily. REVIEW OF SYSTEMS: As per HPI. Otherwise, 12-point review of systems was negative. PHYSICAL EXAMINATION: Vital Signs: Temperature 98 degrees, pulse is 79, respirations 22, blood pressure 144/94, oxygen saturation 100% on room air. His weight is 226.3, BMI 32.6 kg/m2. General: He is alert, oriented x3, and in no acute distress. HEENT: Pale conjunctivae. No icterus. PERRL. Neck: Supple. Chest: Lungs are clear to auscultation in anterior and posterior olsen. Cardiovascular: Regular rate and rhythm. Abdomen: Distended, soft, nontender. Active bowel sounds heard in all 4 quadrants. Extremities: No clubbing or cyanosis. +2 pitting edema noted bilaterally. 1+ pedal pulses present bilaterally. Neurologic: Alert, oriented x3. Nonfocal. Cranial nerves II through XII grossly intact. IMAGING AND LABORATORY DATA: WBCs 5.24, RBCs 2.67, hemoglobin 8.5, hematocrit is 27.6, platelet count is 83,000. PT is 18.5, INR is 1.51. Sodium 135, potassium 4.5, chloride is 108, carbon dioxide is 17, anion gap is 10, BUN is 29, creatinine 2.5, glucose 179, calcium was 8.8. Phosphorus 3.4, magnesium 1.8. Iron is 52, ferritin is 75. AST 17, ALT 8, total bilirubin 1.70. Chest x-ray showed stable chest. Abdomen and pelvis CT showed trace ascites, severe body wall edema, cardiomegaly, splenomegaly, significant superior mesenteric artery disease with probable arterial stenosis. ASSESSMENT AND PLAN: GI bleed Anemia CKD CHF Hypertension CAD Hyperlipidemia PLAN: The patient is NPO, we will put him on clear liquid diet. His hemoglobin and hematocrit today are 8.5 and 27.6. We will continue to monitor his CBC and BMP. The patient is receiving Protonix daily for his gastrointestinal bleed. performed a rectal exam, patient has hemorrhoids. There is no active bleeding. We have advised the patient to have a high-fiber diet. Patient had a colonoscopy a year back, we have requested to get the records from his GI doctor. The patient's hypertension, hyperlipidemia, and congestive heart failure are managed by his primary care provider. We will continue to monitor the patient, monitor his H & H, and follow the plan of care per PCP. This plan was discussed with DR. Hutson. Thank you for your consult. Please call us with any further questions or concerns. Dictated by JASON Arellano for Juventino Hutson MD cc: Ignacio Browning Jr, MD Physician Attestation I have seen and examined the patient. I have discussed and reviewed the the note by Carmen GOMEZ and agree with findings and plan as documented. Patient presents with rectal bleeding with stable hgb. He has recent EGD last month that was unrevealing. Patient had colonoscopy by Dr. Canchola last year. Rectal exam revealed light brown solid stool in rectal vault and hemorrhoids. Will obtain records from prior colonoscopy. No indication for urgent colonoscopy at this time. Will trend H/H and await outside records. No indication for PPI as patient is not having a UGIB. MTDD
[2019-06-11 18:10] LABS: HEMATOCRIT 27.7 % (42.0-52.0); HEMOGLOBIN 8.2 g/dL (14.0-18.0)
[2019-06-11] MEDS: CRESTOR PO SCH (20:31)
[2019-06-12 01:04] LABS: HEMATOCRIT 26.9 % (42.0-52.0); HEMOGLOBIN 8.1 g/dL (14.0-18.0)
[2019-06-12 06:39] LABS: BASO# 0.04 X1000 (0.0-0.2); BASO% 0.8 % (0.0-0.8); EOS# 0.32 X1000 (0.0-0.7); EOS% 6.4 % (0.0-10.0); HEMATOCRIT 27.3 % (42.0-52.0); HEMOGLOBIN 8.2 g/dL (14.0-18.0); LYMPH# 0.74 X1000 (1.2-3.4); LYMPH% 14.8 % (20.5-51.1); MCH 31.4 PG (27-31); MCV 104.6 FL (81-99); MONO# 0.62 X1000 (0.11-0.59); MONO% 12.4 % (1.7-9.3); MPV 11.2 FL (7.4-10.4); NEUT# 3.27 X1000 (1.4-6.5); NEUT% 65.6 % (42.2-75.2); PLT 77 X1000 (130-400); RBC 2.61 XMIL (4.7-6.1); RDW 14.1 % (11.5-14.5); WBC 4.99 X1000 (4.8-10.8)
[2019-06-12 06:41] LABS: CALCIUM 8.5 mg/dL (8.8-10.2); POTASSIUM 5.5 mmol/L (3.5-5.1)
--- NOTE | 2019-06-12 07:12 | EKG Report ---
Test Performed on : 06/12/2019 06:14:21 AM Test Reason : aflutter Blood Pressure : / mmHG Vent. Rate : 064 BPM Atrial Rate : 066 BPM P-R Int : 000 ms QRS Dur : 114 ms QT Int : 436 ms P-R-T Axes : 000 -11 201 degrees QTc Int : 449 ms Atrial fibrillation. with a competing junctional pacemaker. Nonspecific ST and T wave abnormality Abnormal ECG When compared with ECG of 11-JUN-2019 09:02, Previous ECG has undetermined rhythm, needs review Confirmed by Madisyn PEGUERO, Jose Austin ([id number]) on 06/13/2019 3:39:02 PM
--- NOTE | 2019-06-12 08:44 | CARDIOLOGY PROGRESS NOTE ---
DATE: 06/12/2019 CHIEF COMPLAINT: Blood per rectum and dyspnea. Swelling of the legs. SUBJECTIVE: Mr. Prabhakar is sitting up in chair. His is in the bedroom. The patient says that he is feeling fine. He has no chest pain or dyspnea. His legs feel about the same as usual. He denies having any discomfort. His thinks that he is just about the same as always. OBJECTIVE: Vital signs: Blood pressure is 115/58, temperature 98.9, pulse 65, respirations 16. General: The patient is awake, alert, no distress. HEENT: Very prominent neck veins. Chest: Clear to auscultation and percussion. Heart: Sounds are regular and rhythmic. Some extrasystole is noted. Abdomen: Nontender. Extremities: Showed 1-2+ brawny edema. Neurologic exam: Follows commands, moves all 4 extremities. EKG shows atrial flutter with a 3:1 block. BLOOD WORK: Today, sodium 136, potassium 5.5, BUN is 28, creatinine 3.0, chloride 110, carbon dioxide 16. IMPRESSION: 1. Patient who presented with rectal bleeding. 2. Chronic ischemic heart disease, previous coronary artery bypass surgery. Multiple coronary interventions. 3. History of chronic kidney disease. 4. Chronic obstructive pulmonary disease. 5. Dyslipidemia. The patient is functional class III of [place] [employer] borderline in to IV. RECOMMENDATIONS: At this time from my viewpoint, the patient may proceed with whatever GI evaluation is necessary to determine the source of bleeding. I really do not have any urgent recommendations. I definitely advise to get a Nephrology evaluation because he has worsening kidney function. He has acidosis and that really has to be addressed by Nephrology. Upon discharge, he needs to follow up with Dr. Mathias in [facility] in [place]. He already has an appointment to see them on 06/26. At this point, I am going to standby. Please call me if I can be of any further assistance. cc: MD Ignacio Myles Jr, MD
--- NOTE | 2019-06-12 09:03 | PROGRESS NOTE ---
DATE: 06/12/2019 SUBJECTIVE: The patient says he feels better. OBJECTIVE: Vital Signs: Blood pressure 115/58, respirations 16, pulse 55, temperature 98.9 degrees Fahrenheit. HEENT: Normocephalic. EOMs intact. PERRLA. Throat clear. Lungs: Clear to auscultation and percussion without rhonchi, rales, or wheezes. Heart: Regular rate and rhythm without murmurs, gallops, friction rubs. Abdomen: Soft with active bowel sounds. No organomegaly or tenderness. ASSESSMENT AND PLAN: The patient came in with gastrointestinal bleed. Initially, it was thought he might have upper gastrointestinal bleed. He described to some people that he had black-looking stools. When I asked him, he said they were dark red, so his story has changed. On examination, he is not hurting any now. He had some internal hemorrhoids. His hemoglobin is generally around 9.3. It dropped down to 8.2 this morning. He also has congestive heart failure with an ejection fraction of around 30 or so, and we are watching that as well. He has had a little shortness of breath, so I had Cardiology come to see him. They had no new suggestions. However, creatinine has gotten worse. He has chronic renal failure, and his creatinine went from 2.5 to 3.0. Consultation has been put in with Nephrology. Will continue to watch. cc: Ignacio Browning Jr, MD
[2019-06-12] MEDS: APRESOLINE PO SCH ×3 (09:46→17:42)
[2019-06-12] MEDS: ISORDIL PO SCH ×3 (09:46→17:42)
[2019-06-12] MEDS: COREG PO SCH ×2 (09:46→20:49)
--- NOTE | 2019-06-12 11:52 | GASTROENTEROLOGY PROGRESS NOTE ---
DATE: 06/12/2019 SUBJECTIVE: Mr. Prabhakar is a 69-year-old male, resting in bed. Denies any nausea, vomiting, or abdominal pain. OBJECTIVE: Vital Signs: Temperature 98.9 degrees, pulse is 55, respirations 16, blood pressure is 115/58, oxygen saturation 100% on room air. His weight is 226.3, BMI is 32.6 kg/m2. General: He is alert, oriented x3, in no acute distress. HEENT: Pale conjunctivae. No icterus. PERRL. Neck: Supple. Chest: Lungs are clear to auscultation in anterior and posterior olsen. Cardiovascular: Regular rate and rhythm. No murmurs, rubs, or gallops heard on auscultation. Abdomen: Distended, soft, nontender. Active bowel sounds heard in all 4 quadrants. Extremities: No clubbing or cyanosis. There is 1+ pitting edema noted bilaterally. There are 1+ pedal pulses present bilaterally. Neurologic: He is alert, oriented x3. IMAGING AND LABORATORY DATA: WBCs 4.99, RBCs 2.61, hemoglobin 8.2, hematocrit is 27.3, platelet count is 77,000. PT is 18.5, INR 1.5. Sodium is 136, potassium is 5.5, chloride is 110, carbon dioxide is 16, anion gap is 10, BUN is 28, creatinine 2.0, glucose 106, calcium 8.5. Chest x-ray showed stable chest. CT of the abdomen and pelvis showed trace ascites, severe body wall edema, cardiomegaly, splenomegaly, and significant superior mesenteric artery disease with probable arterial stenosis. IMPRESSION AND PLAN: 1. Gastrointestinal bleed. 2. Anemia. 3. Chronic kidney disease. 4. Congestive heart failure. 5. Hypertension. 6. Coronary artery disease. 7. Hyperlipidemia. PLAN: The patient is on a clear liquid diet. He denied any nausea, vomiting, or any abdominal pain. His hemoglobin today was 8.2, and hematocrit was 27.3. It has been trending upwards slightly. We have asked the nurse to get the records from Dr. Walker's office, he had a colonoscopy last year. The patient has hemorrhoids. There is no active bleeding. Advised the patient to have a high- fiber diet. His H & H today is 8.2 and 27.3, We will continue to monitor his hemoglobin and hematocrit, and follow the plan of care per primary care physician. Awaiting the records from his Gastroenterology doctor. His hypertension, hyperlipidemia, and congestive heart failure are managed by the primary care provider. We will continue to follow the plan of care as per primary care provider. This plan was discussed with Dr. Hutson. Please call us for any further questions or concerns. Dictated by JASON Arellano for Juventino Hutson MD cc: Ignacio Browning Jr, MD Physician Attestation I have seen and examined the patient. I have discussed and reviewed the the note by Carmen GOMEZ and agree with findings and plan as documented. Patient presents with scant rectal bleeding. Of note, patient had 7 polyps removed on last colonoscopy in 03/2018. He has not had recurrence and hgb is stable. Patient can be discharged from GI perspective with outpatient colonoscopy with Dr. Hutson for surveillance for colonic polyps. His rectal bleeding is likely from hemorrhoids found on rectal exam. Will sign off. Please call with questions. RAVI
[2019-06-12] MEDS: SODIUM BICARBONATE PO SCH ×2 (14:44→20:49)
--- NOTE | 2019-06-12 16:04 | Diag Imaging Result Doc PS360 ---
EXAM: US RENAL 2 (RETROPER) COMPLETE 06/12/2019 HISTORY: decreased renal function TECHNIQUE: Renal ultrasound COMMENT: There is no evidence of hydronephrosis. The urinary bladder is not distended. The right kidney is 12.5 x 4.7 x 4.1 cm the left kidney is 12.3 x 6 x 5.5 cm. There is a 2.2 cm cyst in the mid right kidney and a poorly defined hypoechoic or anechoic lesion present in the upper pole of the left kidney measuring 1.8 cm in greatest dimension. This is probably a cyst but is not well demonstrated. Both kidneys are somewhat hyperechoic. Compared to the previous CT of 10/29/2017 the cysts were demonstrated previously bilaterally. IMPRESSION: No evidence of obstructive uropathy. The possibility of medical renal disease cannot be excluded. Electronically signed by Chintan Jacques 06/12/2019 4:02 PM
[2019-06-12 17:01] LABS: URINE SOURCE CLEAN CATCH
[2019-06-12 17:10] LABS: BILIRUBIN URINE SMALL (NEGATIVE); BLOOD URINE NEGATIVE (NEGATIVE); COLOR YELLOW; GLUCOSE URINE NEGATIVE (NEGATIVE); KETONE URINE NEGATIVE (NEGATIVE); LEUKOCYTES URINE NEGATIVE (NEGATIVE); NITRITE URINE NEGATIVE (NEGATIVE); PH URINE 5.5; PROTEIN URINE 100 mg/dL (NEGATIVE); SP GRAVITY URINE 1.025; TURBIDITY URINE CLEAR (CLEAR); UR EPITHELIAL CELLS <10 /HPF (<10); URINE BACTERIA NEGATIVE /HPF; URINE RBC <10 /HPF (<10); URINE WBC <10 /HPF (<10); UROBILINOGEN URINE 6 mg/dL (NORMAL)
[2019-06-12 17:18] LABS: UR PROT RANDOM 86.7 mg/dL
[2019-06-12 17:21] LABS: UR CREAT RANDOM 315.2 mg/dL (14-26)
[2019-06-12] MEDS: CRESTOR PO SCH (20:49)
--- NOTE | 2019-06-12 21:07 | NEPHROLOGY CONSULTATION ---
DATE: 06/12/2019 REASON FOR ADMISSION: Hematochezia with feelings of weakness. REASON FOR CONSULT: Renal dysfunction with acidosis. CONSULTING PHYSICIAN: Dr. Gramajo. HISTORY OF PRESENT ILLNESS: Mr. Prabhakar is a 61-year-old white male, who has been seen by our practice in the past with chronic renal insufficiency, baseline creatinine of 2.1. He has known hypertension with chronic systolic heart failure with an ejection fraction of 20% to 25%, chronic atrial fibrillation with coronary artery disease. The patient had developed prolonged hematochezia after returning for taoist on Monday. Did not stop over several hours. His stools were dark in color. He denied any abdominal discomfort, any fever or chills. No nausea or vomiting. No genitourinary complaints. States that he has been taking his prescribed medications. No arya-wix-kwjafrv nonsteroidal anti-inflammatories, though he is on a daily aspirin. In the emergency room, it was found that his hemoglobin was 8 with hematocrit of 28, potassium was 5.5, BUN of 29, and creatinine of 2.5. His stools were heme positive. He was subsequently admitted for further monitoring and evaluation by Gastroenterology. Chest x-ray showed that it was stable. CT of the abdomen did show mesenteric artery disease with arterial stenosis some abdominal ascites. PAST MEDICAL HISTORY: Extensive for cardiac disease, coronary artery disease diagnosed in 2002 with a myocardial infarction, surgical revascularization, last intervention on 09/13/2013. At that time, stenosis of right coronary artery had been stented. He has worsening systolic heart failure last ejection fraction noted at 20% to 25% by Cardiology. History of hypertension, hyperlipidemia, chronic renal insufficiency, known baseline creatinine of 1.8 to 2.1, COPD, previous history of a stroke. PAST SURGICAL HISTORY: Coronary artery bypass graft x3 per Dr. Brady in [place]. He had a left radial graft and a venous graft, right coronary artery graft, cholecystectomy, several coronary artery interventions. SOCIAL HISTORY: He is . He is disabled. He lives at home with his spouse. Four children. 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 Chews tobacco. No alcohol or illicit drug use. FAMILY HISTORY: Noted that his brother has coronary artery disease. Negative for family history. ALLERGIES: Listed as no known drug allergies. HOME MEDICATIONS: Daily low-dose aspirin, carvedilol, lisinopril, rosuvastatin, Klor-Con, Bumex, spironolactone, isosorbide mononitrate, and Prilosec. REVIEW OF SYSTEMS: Review of systems times 10 with pertinent positives listed above in the HPI. PATIENT'S MOST RECENT VITAL SIGNS: Temperature 98.2 degrees blood pressure 111/62, heart rate 54, respirations 16, currently on room air last recorded saturation 100%. INTAKE AND OUTPUT: He has had 540 in, 375 out to void, though he has voided multiple times without recording. DIAGNOSTIC STUDIES: The patient's most recent labs: Sodium 136, potassium 5.5, chloride 115, CO2 of 16, BUN 28, creatinine 3, glucose 106, anion gap of 10, calcium 8.5, phosphorus 3.5, albumin 3.6. White count 4.99, hemoglobin 8.2, hematocrit 27.3, with a platelet count of 77,000. The patient has a uric acid level of 8.7. BNP this a.m. of 15,788. Chest x-ray shows stable. EKG shows atrial flutter. 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 PHYSICAL EXAMINATION: This is a 69-year-old white male, resting quietly in bed. He denies any chest pain. No increased work of breathing. States that he has been up in a chair to eat his lunch.HEENT: Normocephalic, atraumatic. Conjunctiva is pale pink. He has ROMAN. Mucous membranes are moist. Neck: Supple. Trachea midline. No evidence of JVD in the upright position. Cardiovascular: Irregularly irregular rate and rhythm. Questionable systolic murmur present. Lungs: Clear to auscultation anteriorly. Equal excursion. He is currently on room air. Abdomen is distended soft, nontender. Positive bowel sounds. Genitourinary: Not inspected. Patient has been voiding. Requested to keep strict intakes and outputs. Extremities: 2+ edema up into the mid hip, knee area. No swelling in the abdominal trunk. Integumentary: No rashes or lesions inspected. Neurological: Alert and oriented x3. ASSESSMENT AND PLAN: 1. Acute kidney injury. The patient has an elevated BUN and creatinine, BUN of 28, creatinine of 3. It is noted that his baseline creatinine runs at 2.1. He currently has his diuretic on hold, his Bumex, spironolactone, and his JAY inhibitor. In this context, more than likely it is acute tubular necrosis. Nephrotoxic medications on hold. He is encouraged to take p.o. well, but he does not have any IV fluids infusing. We will re-evaluate labs in the a.m. Renal ultrasound and urine electrolytes have been ordered. 2. Electrolytes. Patient has mild hyperkalemia, potassium of 5.5. We will continue to monitor. 3. Acidosis. CO2 of 16. His anion gap is stable at 10. We will start him on sodium bicarbonate 1600 mg b.i.d. We will re-evaluate labs in the a.m. 4. Hematochezia. The patient has been transfused for a hemoglobin of 8. Gastroenterology has been consulted. They have evaluated on a rectal exam, finding that he has hemorrhoids. They have indicated no urgent colonoscopy is needed. They are attempting to find records from [facility] on his last colonoscopy. I would like to thank you for allowing us to follow with this patient. Dictated by JASON Vyas for Izaiah Enamorado MD cc: JASON Vyas MD Roger H. Moss Jr, MD MTDD
[2019-06-13 06:32] LABS: ALBUMIN 3.5 g/dL (3.5-5.0); CALCIUM 8.7 mg/dL (8.8-10.2); CREATININE 2.6 mg/dL (0.7-1.2); PHOSPHORUS 2.9 mg/dL (2.7-4.5); POTASSIUM 5.3 mmol/L (3.5-5.1)
--- NOTE | 2019-06-13 07:45 | EKG Report ---
Test Performed on : 06/13/2019 07:08:15 AM Test Reason : aflutter Blood Pressure : / mmHG Vent. Rate : 059 BPM Atrial Rate : 063 BPM P-R Int : 000 ms QRS Dur : 112 ms QT Int : 460 ms P-R-T Axes : 000 -19 192 degrees QTc Int : 455 ms Atrial fibrillation. with slow ventricular response. with a competing junctional pacemaker. with ivan ature ventricular or aberrantly conducted complexes. Nonspecific T wave abnormality Abnormal ECG When compared with ECG of 12-JUN-2019 06:14, (Unconfirmed) No significant change was found Confirmed by Jose Mars MD ([id number]) on 06/13/2019 3:42:31 PM
[2019-06-13] MEDS: ISORDIL PO SCH ×3 (08:35→16:47)
[2019-06-13] MEDS: COREG PO SCH ×2 (08:35→20:12)
[2019-06-13] MEDS: SODIUM BICARBONATE PO SCH ×2 (08:35→20:12)
[2019-06-13] MEDS: APRESOLINE PO SCH ×3 (08:35→16:47)
--- NOTE | 2019-06-13 09:42 | NEPHROLOGY PROGRESS NOTE ---
DATE: 06/13/2019 SUBJECTIVE: Mr. Prabhakar is resting quietly. He is sitting up in his chair. States that he has an appointment to go to the [facility] upon discharge on the of this month. He denies chest pain. No increased work of breathing. Positive for chronic lower extremity swelling. OBJECTIVE: Vital Signs: Temperature 98.2 degrees, blood pressure 123/70, heart rate 75, respirations 24. He is on room air last recorded saturation 100%. He has had 840 in. He has had 0 recorded out. LABS: Sodium 133, potassium 5.3, chloride 105, CO2 18, BUN 27, creatinine 2.6, glucose is 100. His anion gap is 10, calcium 8.7, phosphorus 2.9, albumin 3.5. Previous hemoglobin 8.2. PHYSICAL EXAMINATION: General: This is a 69-year-old male. He is resting quietly sitting up in a chair. He is alert and oriented. He has positive JVD in the upright position. Cardiovascular: Irregularly irregular rate and rhythm. No appreciable murmur or gallop. Lungs: Clear to auscultation bilaterally. Equal excursion on room air. Abdomen: Large, round, soft, nontender. Positive bowel sounds. Genitourinary: Not inspected patient has been voiding. His indicates that he has not been saving his urine. Extremities: Remain with 2+ edema up into the mid thigh area. Patient states this is chronic. Integumentary: The patient has a dry skin, hardened to touch with appearance of chronic venous stasis. Neurological: Alert and oriented x3. ASSESSMENT AND PLAN: 1. Acute kidney injury on chronic kidney disease stage 3. BUN and creatinine are slowly improving today. He has a BUN of 27 with a creatinine of 2.6. The patient admits that he has been voiding adequate amounts getting up and going to the bathroom. He remains on Lasix. His Bumex, spironolactone and his JAY inhibitor remain on hold. No IV is infusing at this time. 2. Electrolytes and acid-base balance. These are acceptable. 3. Anemia this is low but stable. 4. Hematochezia. This is followed by Gastroenterology and primary care. I would like to thank you for allowing us to follow with this patient. Dictated by JASON Vyas for Izaiah Enamorado MD cc: JASON Vyas MD Roger H. Moss Jr, MD
[2019-06-13] MEDS: PROTONIX IV SCH (10:18)
[2019-06-13] MEDS: SODIUM CHLORIDE 0.9% INJ SCH (10:18)
--- NOTE | 2019-06-13 11:14 | GASTROENTEROLOGY PROGRESS NOTE ---
DATE: 06/13/2019 SUBJECTIVE: Mr. Prabhakar 59 year old male sitting in the chair. Family at the bedside. He was having his breakfast. The patient denies any nausea, vomiting, diarrhea, or noticing any blood in the stools. OBJECTIVE: Vital Signs: Temperature 98.6 degrees, pulse is 58, respirations 16, blood pressure is 127/75, oxygen saturation is 98% on room air. His weight is 226.3, BMI is 32.6 kg/m2. General: He is alert, oriented x3. No acute distress. HEENT: Pale conjunctivae. No icterus. PERRL. Neck: Supple. Chest: Lungs clear to auscultation in anterior and posterior olsen. Cardiovascular: Regular rate and rhythm. No murmurs, rubs, or gallops heard on auscultation. Abdomen: Distended, soft, nontender. Active bowel sounds heard in all 4 quadrants. Extremities: No cyanosis, clubbing. Generalized edema in the lower extremities bilaterally. Neurological: Alert, oriented x3. Laboratory Data: WBCs 4.99, RBCs 2.61, hemoglobin is 8.2, hematocrit 27.3, platelet count is 77,000. Sodium 133, potassium 5.3, chloride 105, carbon dioxide 18, anion gap is 10, BUN is 27, creatinine is 2.6, glucose is 100, calcium is 8.7, phosphorus is 2.9, albumin is 3.5. Renal ultrasound showed no evidence of obstructive uropathy. The possibility of medical renal disease cannot be excluded. Chest x-ray on 06/11/2019 showed a stable chest. 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 IMPRESSION: 1. Gastrointestinal bleed. 2. Anemia. 3. Chronic kidney disease. 4. Congestive heart failure. 5. Hypertension. 6. Coronary artery disease. 7. Hyperlipidemia. PLAN: The patient was on a clear liquid diet. We have advanced his diet to a GI soft. He has denied any nausea, vomiting, abdominal pain, diarrhea, or blood in the stools. His hemoglobin and hematocrit was 8.2 and 27.3. The patient has a history of hemorrhoids. We have started the patient with protonix 40 mg IV BID and then continue PO for 3 months. There is no active bleeding noticed. We have advised the patient to be on high-fiber diet. We will continue to monitor his hemoglobin and hematocrit, and follow the plan of care per primary care provider.. We have received the results from his previous GI doctor who had done his colonoscopy in 2018 and the findings were polyps in the ascending colon, hepatic flexure, and the sigmoid colon. All of them were cauterized. We have advised the patient to follow up as an outpatient in our clinic once he is discharged for a repeat colonoscopy for work up of Anemia. We will continue to follow the plan of care per primary care provider. This plan was discussed with Dr. Paulino. Please call us for any further questions or concerns. Dictated by JASON Arellano for Juvencio Paulino MD cc: MD Ignacio Dillon Jr, MD I have seen and examined the patient myself and I agree with the above plan of care. The above plan was discussed with the patient and all questions were answered. Please call us with any further questions. RAVI
--- NOTE | 2019-06-13 13:41 | PROGRESS NOTE ---
DATE: 06/13/2019 SUBJECTIVE: I am seeing Mr. Prabhakar in Dr. Browning' absence. The patient is stable. He denies recurrent rectal bleeding or abdominal pain. He does complain of some leg swelling. He is off his Bumex and Aldactone and Lasix at this point due to some renal dysfunction that had worsened, but is now improving. OBJECTIVE: Afebrile. Pulse 54, respirations 18, blood pressure 116/65, and O2 saturation room air 100%/CV: RRR. Lungs: CTA. Extremities: Two to 3+ edema with some serous discharge. Abdomen: Nontender. Neurologic: Nonfocal. Alert and oriented x3. LABORATORY DATA: No CBC obtained today, but sodium 133, potassium 5.3 cm, chloride 105, CO2 18, BUN 27, creatinine 2.6 down from 3.0, calcium 8.7, and albumin 3.5. ASSESSMENT AND PLAN: 1. Rectal bleeding. It was thought that this might be related to some hemorrhoids. The patient had colonoscopy a year ago per Dr. Walker. Dr. Hutson is evaluating in the hospital on this occasion, and feels like he is in not in need of further endoscopic evaluation at this point. He is on PPI IV currently, and will monitor his hemoglobin and make sure it does not drop. If he remains stable, and then may be able to discharge in 48 hours if he continues to improve. Otherwise, he is off the diuretics. We will elevate his legs several times during the day. He is currently sitting in a chair and reiterated the need to elevate his legs. He is off the diuretics due to the renal dysfunction which had worsened. He has chronic renal insufficiency, and that seems to be improving back toward baseline. 2. GI bleed. 3. Renal insufficiency. 4. CHF. Dr. Gramajo has evaluated and signed off the case. We will try to reinitiate some of his diuretics once his kidney function improves. For now, he remains on Coreg, hydralazine and Imdur. Sodium bicarbonate has been added by Nephrology. He will be following up at the [facility] with Dr. Mahtias in [place] when he is discharged. 5. Hypercholesterolemia. 6. Chronic thrombocytopenia. 7. Hypertension. 8. Hyperlipidemia. 9. Paroxysmal atrial fibrillation. 10. CAD. PLAN: Continue present care with adjustments as above. cc: MD Ignacio Hassan Jr, MD
[2019-06-13] MEDS ORDERED: FLU VACCINE IM ONE (16:00)
[2019-06-13] MEDS: CRESTOR PO SCH (20:13)
--- NOTE | 2019-06-14 05:03 | PROVIDER DOCUMENTATION ---
This chart was entered by Matthew Hobson Scribe, acting as scribe for Demetrius Turner MD. HPI-Abdominal Pain/GI Problem - General Chief Complaint: GI Bleed Stated Complaint: bleeding from rectum Time Seen by Provider: 06/10/19 21:53 Source: patient Allergies/Adverse Reactions: Patient Allergies Allergy/AdvReac Type Severity Reaction Status Date / Time No Known Allergies Allergy Verified 06/22/19 23:58 Home Medications: Home Medication List Medication Instructions Recorded Confirmed Last Taken Type Aspirin 81 mg PO DAILY 02/04/14 06/22/19 05/07/19 History Carvedilol 25 mg PO BID 02/04/14 06/22/19 05/08/19 06:30 History Spironolactone 50 mg PO BID 05/07/19 06/22/19 1 Day Ago History ~06/21/19 Omeprazole [Prilosec] 20 mg PO DAILY 06/11/19 06/22/19 Unknown History Furosemide [Lasix] 40 mg PO DAILY #30 tab 06/14/19 06/22/19 Unknown Rx Sodium Bicarbonate 1,300 mg PO BID #120 tab 06/14/19 06/22/19 Unknown Rx Hydralazine [Apresoline] 50 mg PO TID 06/22/19 06/22/19 Unknown History - History of Present Illness-ABD Nature of Presenting Problems: Pt is a 69 yom who presents to the ED with a CC of rectal bleeding. Pt reports he noticed that he was bleeding from his rectum at approximately 1930 this evening. Pt denies a hx of similar symptoms and denies any current rectal pain. Pt reports he has been constipated lately. Pt reports his rectal bleeding started without being accompanied by a bowel movement. Pt reports taking a daily asprin but denies taking any other blood thinner. Pt reports being asymptomatic on examination. Pt reports he has had a colonoscopy in the past and states it was negative. Quality of Pain: reports: none Severity in ED: reports: mild Onset/Duration: reports: this evening Timing: reports: still present Associated Symptoms: reports: constipation, other (Rectal bleed) Rectal Bleeding: reports: bleeding without stool Rectal Pain: reports: none Emesis Description: reports: none Bruising or Bleeding Gums?: No Similar Symptoms Previously?: No Recently seen or treated by another doctor?: No Review of Systems - Adult - REVIEW OF SYSTEMS - ADULT Constitutional: reports: see HPI Eyes: reports: no symptoms reported Ears, Nose, Mouth & Throat: reports: no symptoms reported Cardiovascular: reports: no symptoms reported Respiratory: reports: no symptoms reported Gastrointestinal: reports: see HPI, rectal bleeding Genitourinary: reports: no symptoms reported Musculoskeletal: reports: no symptoms reported Integumentary: reports: no symptoms reported Neurological: reports: no symptoms reported Psychiatric: reports: no symptoms reported Endocrine: reports: no symptoms reported Hematologic/Lymphatic: reports: no symptoms reported Allergic/Immunologic: reports: no symptoms reported All Other Systems: Reviewed and Negative Past History - Adult - PAST MEDICAL HISTORY-ADULT Review of Records: reports: Old Records Reviewed, Nursing Assessment Review, Medications Reviewed, Social history reviewed & non-contributory. Major Childhood Illnesses: reports: denies history Cardiovascular: reports: CAD, HTN, hyperlipidemia, NV Respiratory: reports: COPD Gastrointestinal: reports: denies history Obstetrical/Gynecological: reports: denies history Genitourinary: reports: denies history Musculoskeletal: reports: denies history Neurological: reports: denies history Psychiatric: reports: denies history Endocrine/Immune: reports: Diabetes Other Conditions: reports: denies history - PRIOR SURGERIES/PROCEDURES Surgical/Procedure History: reports: cardiac stent, other (CABG) - IMMUNIZATION STATUS Childhood Immunizations: See Nurse Assessment Flu Vaccine: See Nurse Assessment - FAMILY HISTORY Family History: reviewed, not pertinent - SOCIAL HISTORY Smoking: non-smoker, quit greater than 1 year Substance Use: none/never, denies Alcohol Use Frequency: never Physical Exam-General - PHYSICAL EXAM-ADULT Initial Vital Signs Reviewed: Yes - CONSTITUTIONAL General Appearance: alert, mild distress - EYES Eyes: PERRL/EOMI - HEAD, EARS, NOSE, MOUTH & THROAT HENMT: moist mucous membranes - NECK Neck: non-tender, full range of motion - RESPIRATORY Respiratory: chest non-tender, lungs clear, normal breath sounds, no pleuratic chest pain, no respiratory distress, no accessory muscle use - CARDIOVASCULAR Cardiovascular: normal peripheral pulses, regular rate, rhythm, no edema, no gallop, no JVD, no murmur - GASTROINTESTINAL (ABDOMEN) Abdominal Exam: non tender, soft - MUSCULOSKELETAL Extremity: normal range of motion, normal gait - SKIN Integumentary: normal color, warm/dry - NEUROLOGIC Neurologic: grossly normal, no motor/sensory deficits - PSYCHIATRIC Psych/Mental Status: normal mood/affect, normal thought content, normal thought process, oriented x 3 Progress - PLAN OF CARE/RESULTS Progress/Plan/Lab Results: Vital Signs - 8 hr 06/10/19 21:49 Temperature 98.2 F Pulse Rate 82 Respiratory Rate 17 Blood Pressure 139/91 O2 Sat by Pulse Oximetry 95 Result Diagrams: 06/14/19 05:50 06/14/19 05:50 Departure - Departure Date of Disposition Decision: 06/10/19 Time of Disposition Decision: 23:50 DIAGNOSIS: Rectal bleeding Disposition: HOME 01 Certified Medical Emergency: Emergent Condition: Good - Critical Care Note This patient required my direct & personal management of CC.: No Attestation - Physician/ ALBER Attestation Patient care was provided by Advanced Practice Provider:: No The physician spent face to face time with patient:: Yes Advanced Practice Provider documentation review:: Supervising physician onsite and consulted in the evaluation and care of this patient. The physician did have a face to face encounter with the patient. This chart was documented by the indicated scribe, (Matthew Hobson, Scribe) and accurately reflects the services I performed and decisions made by me, Demetrius Kirby MD, as attested by the provider's signature.
[2019-06-14 06:17] LABS: BASO# 0.02 X1000 (0.0-0.2); BASO% 0.4 % (0.0-0.8); EOS# 0.27 X1000 (0.0-0.7); EOS% 5.2 % (0.0-10.0); HEMATOCRIT 28.1 % (42.0-52.0); HEMOGLOBIN 8.6 g/dL (14.0-18.0); LYMPH# 0.59 X1000 (1.2-3.4); LYMPH% 11.4 % (20.5-51.1); MCH 31.7 PG (27-31); MCHC 30.6 g/dL (33-37); MCV 103.7 FL (81-99); MONO# 0.56 X1000 (0.11-0.59); MONO% 10.8 % (1.7-9.3); NEUT# 3.74 X1000 (1.4-6.5); NEUT% 72.2 % (42.2-75.2); PLT 83 X1000 (130-400); RBC 2.71 XMIL (4.7-6.1); RDW 14.1 % (11.5-14.5); WBC 5.18 X1000 (4.8-10.8)
[2019-06-14 06:36] LABS: ALBUMIN 3.4 g/dL (3.5-5.0); CALCIUM 8.9 mg/dL (8.8-10.2); CREATININE 2.8 mg/dL (0.7-1.2); PHOSPHORUS 2.9 mg/dL (2.7-4.5); POTASSIUM 5.2 mmol/L (3.5-5.1)
[2019-06-14] MEDS: PROTONIX IV SCH (08:58)
[2019-06-14] MEDS: COREG PO SCH (08:58)
[2019-06-14] MEDS: SODIUM BICARBONATE PO SCH ×2 (08:58→16:35)
[2019-06-14] MEDS: APRESOLINE PO SCH ×2 (08:58→13:28)
[2019-06-14] MEDS: SODIUM CHLORIDE 0.9% INJ SCH (08:58)
[2019-06-14] MEDS: ISORDIL PO SCH ×2 (08:58→13:28)
--- NOTE | 2019-06-14 14:27 | NEPHROLOGY PROGRESS NOTE ---
DATE: 06/14/2019 SUBJECTIVE: Patient is sitting up in a chair. No complaints today. OBJECTIVE: Vital Signs: Temperature 98 degrees point, pulse 54, respiratory rate 18, blood pressure 122/71. Intake 240 mL. Output 850 mL. General: This is a elderly gentleman sitting up in a chair. Awake and alert. He is in no acute distress. HEENT: Normocephalic, atraumatic. ROMAN. Neck: Supple. Trace JVD. Cardiovascular: Irregularly, irregular rhythm. Pulmonary: Clear bilaterally, equal excursion. Abdomen: Soft, round, positive bowel sounds. : Voiding. Extremities: 2+ edema, chronic with chronic venous stasis and hardened lower extremities. Integumentary: Skin is warm and dry otherwise. Neurologic: Grossly nonfocal. LAB DATA: WBC of 5.1, hemoglobin 8.6. Sodium 135 potassium 5.2. CO2 17. Creatinine 2.8. ASSESSMENT/PLAN: 1. Acute on chronic kidney disease 3. Fairly stable renal function. His creatinine initially was 3 two days ago. It was 2.6 yesterday and 2.8 today. 2. Electrolytes, acid-base balance. Sodium is acceptable as well as potassium. Acid-base balance monitor. Add bicarbonate if continued. 3. Gastrointestinal bleed, hematochezia. Followed by primary. Dictated by JASON Milligan for Izaiah Enamorado MD cc: MD Ignacio Worrell Jr, MD
[2019-06-14 15:58] VITALS: BP 119/77
--- NOTE | 2019-06-14 16:30 | PROGRESS NOTE ---
DATE: 06/14/2019 SUBJECTIVE: Patient overall feeling better. He has had a little less swelling in his legs. He has had no more rectal bleeding. He has been evaluated by Dr. Hutson and I have spoken with Dr. Hutson and he thinks the patient is okay to go home from his standpoint. He thinks the bleeding is from hemorrhoids and he says he can resume his daily baby aspirin a day. OBJECTIVE: Afebrile. Vital signs stable. O2 saturation on room air 100%.CV: RRR. Lungs: Clear. Extremities: 2+ lower extremity edema. No serous discharge today. This is slightly improved from yesterday. LAB DATA: Shows hemoglobin 8.6, that is rising, white count 5.18, platelets 83,000 and fairly stable. Sodium 135, potassium 5.2, chloride 105, CO2 is 17, BUN 29, creatinine 2.8, phosphorus 2.9, calcium 8.9, albumin 3.4. Reviewed nurse practitioner's note that works with Dr. Enamorado. ASSESSMENT: 1. Rectal bleeding thought related to hemorrhoids. 2. Chronic anemia multifactorial, primarily related to chronic renal insufficiency. 3. Chronic thrombocytopenia. 4. Chronic renal insufficiency with stable creatinine around 2.6 to 2.8. 5. Congestive heart failure followed by Dr. Gramajo with no major changes. We will discharge him back on low-dose Lasix and off Aldactone and off Bumex due to the hyperkalemia and we will also leave him off potassium. He has been placed on bicarbonate per Nephrology. We will continue that. 6. Hypercholesterolemia. 7. Hypertension. 8. Hyperlipidemia. 9. Paroxysmal atrial fibrillation on chronic aspirin and Coreg therapy. 10. Coronary artery disease. PLAN: Discharge the patient home on low-dose Lasix 40 mg daily. No potassium supplementation. He will be on new addition of sodium bicarbonate 1300 mg b.i.d. He will resume his aspirin 81 mg daily. He will follow up with Dr. Browning within 4 to 5 days in his office with repeat CBC and BMP at that time. cc: MD Ignacio Hassan Jr, MD
--- NOTE | 2019-06-22 02:39 | DISCHARGE SUMMARY ---
ADMISSION DATE: 06/11/2019 DISCHARGE DATE: 06/14/2019 FINAL DIAGNOSES: 1. Gastrointestinal bleed, thought to be now from hemorrhoids. 2. Congestive heart failure. 3. Chronic anemia. 4. Chronic kidney disease. CONSULTATIONS: Dr. Coffey, GI; Dr. Gramajo, Cardiology; Dr. Enamorado, Nephrology. HISTORY OF PRESENT ILLNESS: The patient is a 61-year-old male who came in with multiple problems, but had started to have some rectal bleeding. He also has a history of coronary artery disease status post CABG, CVA, COPD, chronic kidney disease, congestive heart failure, chronic hypertension, hyperlipidemia, atrial fibrillation. The patient has elected not to take blood thinners. When he came in, his hemoglobin was 8 with hematocrit of 28, his platelet counts were 83,000 but this is chronic, creatinine was 2.5. Because of his kidney disease and his congestive heart failure, we also had consultants to evaluate as well as his creatinine had gone from 2.5 up to 3.0. While he was in the hospital, he was evaluated. His hemoglobin did not drop any further. He was found to have hemorrhoids and they did quit bleeding. His other conditions are very chronic. Some of his anemia may be from his chronic kidney disease. He was monitored. His ejection fraction is usually around 25%. He has been going to the congestive heart failure clinic. He did have a renal ultrasound that showed possible medical renal disease. It is felt like he was stabilized and he was discharged with low-dose Lasix 40 mg daily. His other diuretics have been stopped. He will also be on sodium bicarbonate 1300 mg p.o. b.i.d. He will resume his aspirin. He is to follow up in my office in 4 to 5 days after discharge with a CBC and a BMP. Appreciate the help from all the specialists. He will be seeing some them as an outpatient. PHYSICAL EXAMINATION: Vital signs: Stable on discharge with a blood pressure 119/77, respirations 20, pulse 54 and irregular, temperature 98.1 degrees Fahrenheit. HEENT: He is normocephalic. PERRLA. Throat clear. Lungs: Clear to auscultation and percussion without rhonchi, rales, or wheezes. Heart: Irregularly irregular without murmurs, gallops, friction rubs. Abdomen: Soft. Active bowel sounds. No organomegaly or tenderness. Neurologic: Exam intact grossly. cc: Ignacio Browning Jr, MD
== END 2019-06-14 17:01 | disposition home or self-care (01) | DRG 394 ==
LOC: SUPCPDRO → ED 21:04 → SUATTDRO 06-11 05:18 → 2N 06-11 05:18
PROVIDERS: ADMIT Emergency Medicine; ATTEND Emergency Medicine